=== PATIENT | female | born 1950 | race Caucasian/White ===

== ENCOUNTER → 2017-09-07 09:44 | Outpatient (CLI) | payer MEDICARE, OTHER, SELFPAY ==
--- NOTE | 2017-09-07 09:47 | XR_ITS ---
XR DEXA axial skeleton HISTORY: ITS.REASON: OSTEOPENIA ORDERING PHYSICIAN: Sanchez Clark PATIENT AGE: 67 years COMPARISON: 01/02/2016 FINDINGS: The BMD measured at the AP Spine L1-L4 femoral neck is 0.920 g/cm squared with a T score of -2.2 . This is considered Osteopenic according to the World Health Organization criteria. Fracture risk is Moderate. Treatment is advised. The mean hip density has a T score of -1.2. The bone density lumbar spine has decreased by 4% in the hip density has decreased by 2% compared to the previous exam IMPRESSION: Osteopenia with moderate fracture risk. Treatment suggested. Recommend follow-up exam August 2019
== END ==
PROVIDERS: Family Provider Nurse Practitioner Family; PCP Nurse Practitioner Family; Visit Provider Orthopaedic Surgery
DX: M85.89 Other specified disorders of bone density and structure, multiple sites (principal)
CPT/HCPCS: 77080

== ENCOUNTER → 2018-01-14 11:35 | Outpatient (CLI) | payer MEDICARE, OTHER, SELFPAY ==
--- NOTE | 2018-01-14 11:41 | CT_ITS ---
CT heart w calcium score INDICATION: Chest pain and palpitations ITS.REASON: . ORDERING PHYSICIAN: Oneal Robles MD PATIENT AGE: 67 years COMPARISON: None TECHNIQUE: Axial images are obtained without contrast. Sagittal and coronal reformatted images are reviewed as well. All CT scans at the facility use one or more dose reduction, viz: automated exposure control, ma/kV adjustment per patient size (including targeted exams where dose is matched to indication, i.e. head), or iterative reconstruction technique. FINDINGS: Coronary artery calcium score is 1 indicating minimal plaque burden with low cardiovascular disease risk. Incidental note is made of calcified nodes within the mediastinum and dada as well as moderate-sized hiatal hernia. There has been prior kyphoplasty at T12. IMPRESSION: Coronary artery calcium score 1 with low cardiovascular disease risk
== END ==
PROVIDERS: PCP Nurse Practitioner Family; Visit Provider Internal Medicine Cardiovascular Disease
DX: G47.33 Obstructive sleep apnea (adult) (pediatric) (principal); M79.603 Pain in arm, unspecified; R00.2 Palpitations; R07.9 Chest pain, unspecified
CPT/HCPCS: 75571; 93270

== ENCOUNTER → 2018-10-20 10:29 | Outpatient (CLI) | payer MEDICARE, OTHER, SELFPAY ==
--- NOTE | 2018-10-20 10:38 | CT_ITS ---
PROCEDURE: CT KNEE LT WO CON CLINICAL HISTORY: LT KNEE PAIN,INSTABILITY LT KNEE JOINT Knee pain and swelling following injury COMPARISON: No exams were available for comparison TECHNIQUE: Axial images obtained with sagittal and coronal reformats. All CT scans at the facility use one or more dose reduction, viz: automated exposure control, ma/kV adjustment per patient size (including targeted exams where dose is matched to indication, i.e. head), or iterative reconstruction technique. FINDINGS: No obvious fracture or dislocation is evident. No lipohemarthrosis apparent. No tibial plateau fracture demonstrated. Small knee joint effusion is present. The ACL and PCL follow a normal course. Cannot adequately evaluate for tear is of the structures with CT. IMPRESSION: 1. No acute fracture 2. Small knee joint effusion Dictated by: Sheldon Pugh MD 10/20/2018 15:45 Signed by: <Electronically signed by Sheldon Pugh MD in [place]> 10/20/2018 15:49
== END ==
PROVIDERS: PCP Nurse Practitioner Family; Visit Provider Nurse Practitioner Family
DX: M25.562 Pain in left knee (principal); M25.362 Other instability, left knee
CPT/HCPCS: 73700

== ENCOUNTER → 2018-12-24 13:01 | Outpatient (CLI) | payer MEDICARE, OTHER, SELFPAY ==
--- NOTE | 2018-12-24 13:07 | XR_ITS ---
PROCEDURE: XR KNEE LT 4V CLINICAL INDICATION: left knee pain COMPARISON: No exams were available for comparison FINDINGS: No fracture or dislocation. No lytic or blastic change. There is normal mineralization. The joint spaces are well-preserved. No significant degenerative/arthritic changes. No erosive changes evident. Other findings:None. IMPRESSION: No acute findings. Dictated by: Sheldon Pugh MD 12/24/2018 13:23 Electronically signed by Sheldon Pugh MD in [place] 12/24/2018 13:23
== END ==
PROVIDERS: PCP Family Medicine; Visit Provider Orthopaedic Surgery
DX: M25.562 Pain in left knee (principal)
CPT/HCPCS: 73564

== ENCOUNTER → 2018-12-31 07:39 | Outpatient (CLI) | payer MEDICARE, OTHER, SELFPAY ==
--- NOTE | 2018-12-31 07:41 | MR_ITS ---
PROCEDURE: MR KNEE LT WO CON CLINICAL INDICATION: knee pain Twisting injury with pain COMPARISON: CT KNEE LT WO CON from 10/20/2018 XR KNEE LT 4V from 12/24/2018 TECHNIQUE: Routine multiplanar multi echo sequences are performed without gadolinium enhancement. FINDINGS: The posterior cruciate ligament is unremarkable. There is some thinning of the fibers of the anterior cruciate ligament. This could be due to ACL sprain or partial tear. A full-thickness tear is not present as there are fibers intact. The collateral ligaments are unremarkable as is the patellar tendon and quadriceps tendon. There appears to be a small radial tear within the posterior horn of the medial meniscus. There is also a horizontal tear involving the body of the medial meniscus. There is increased T2 signal within the anterior horn of the medial meniscus and within the anterior and posterior horn of the medial meniscus but does not meet the MRI criteria for meniscal tear. The there is some mild thinning of the patellar cartilage. There is a small knee joint effusion mainly in the suprapatellar region with a mild amount edema within the soft tissues about the knee. No obvious fracture. There are mild tricompartmental osteoarthritic changes with slight increased T2 signal along the medial tibial plateau. IMPRESSION: 1. Horizontal tear involving the body of the medial meniscus as well as a radial tear involving the posterior horn of the medial meniscus. 2. Mild osteoarthritis with knee joint effusion and small amount of edema along the medial tibial plateau. 3. Sprain versus partial tear of the ACL Dictated by: Sheldon Pugh MD 01/02/2019 11:50 Electronically signed by Sheldon Pugh MD in [place] 01/03/2019 11:26
== END ==
PROVIDERS: PCP Nurse Practitioner Family; Visit Provider Orthopaedic Surgery
DX: M25.562 Pain in left knee (principal)
CPT/HCPCS: 73721

== ENCOUNTER → 2019-02-17 13:56 | Outpatient (CLI) | payer MEDICARE, OTHER, SELFPAY ==
--- NOTE | 2019-02-17 | ECG_ITS ---
APPROVED REPORT Exam: Resting ECG HR:67 bpm ECG Measurements Heart Rate 67 AXES FL 184 P 52 QRSd 102 QRS 87 QT 422 T 36 QTc 445 <Conclusion> Normal sinus rhythm Normal ECG Electronically signed by : Ko Acuña, 02/18/2019 07:22:52
[2019-02-17 14:46] LABS: Basophils % 0.4 % (0.1-2.0); Eosinophils # 0.2 K/mm3 (0.0-0.4); Eosinophils % 2.3 % (0.1-12.0); Hematocrit 38.9 % (37.0-47.0); Lymphocytes # 2.6 K/mm3 (0.7-4.5); Lymphocytes % 34.6 % (10-50); Mean Corpuscular HGB Conc 30.9 g/dL (31.8-35.4); Mean Corpuscular Hemoglobin 29.2 pg (27.0-31.2); Mean Corpuscular Volume 94.7 fl (81-99); Mean Platelet Volume 7.1 fl (7.4-10.4); Monocytes # 0.3 K/mm3 (0.1-1.0); Monocytes % 4.1 % (1.7-9.3); Neutrophils # 4.4 K/mm3 (1.8-7.8); Neutrophils % 58.5 % (37.0-80.0); Platelet Count 367 K/mm3 (142-424); Red Blood Count 4.11 M/mm3 (4.20-5.40); Red Cell Distribution Width 13.6 % (11.5-17.5); White Blood Count 7.6 K/mm3 (4.8-10.8)
[2019-02-17 16:09] LABS: Alanine Aminotransferase 28 U/L (12-78); Albumin Level 3.6 gm/dL (3.4-5.0); Albumin/Globulin Ratio 1.1 (1.1-1.8); Alkaline Phosphatase 112 U/L (46-116); Anion Gap 14.8 mEq/L (5-15); Aspartate Amino Transferase 16 U/L (15-37); Bilirubin,Total 0.7 mg/dL (0.2-1.0); Blood Urea Nitrogen 14 mg/dL (7-18); Calcium 8.8 mg/dL (8.5-10.1); Carbon Dioxide 27 mmol/L (21.0-32.0); Chloride 104 mmol/L (98-107); Creatinine,Serum 0.83 mg/dL (0.55-1.02); Estimated Glomerular Filt Rate 69 ml/min (>60); GFR (African American) 83 ML/MIN (>60); Globulin 3.4 gm/dl (1.3-3.2); Glucose 117 mg/dL (74-106); Potassium 3.8 mmoL/L (3.5-5.1); Sodium 142 mmol/L (136-145)
== END ==
PROVIDERS: PCP Nurse Practitioner Family; Visit Provider Orthopaedic Surgery
DX: R79.9 Abnormal finding of blood chemistry, unspecified (principal); R07.9 Chest pain, unspecified
CPT/HCPCS: 36415; 80053; 85025; 93005

== ENCOUNTER 2019-02-28 10:00 | Outpatient (RCR) | payer MEDICARE, OTHER, SELFPAY ==
--- NOTE | 2018-11-02 10:34 | HMH.PTOPEV ---
PT Outpatient Evaluation Rehab PT Outpatient Evaluation Start: 11/02/18 08:39 Freq: Status: Active Protocol: Document 11/02/18 10:24 DIANE (Rec: 11/02/18 10:34 [email or web address] [id number]) Electronically Signed By Raman Orozco, PT 11/02/18 10:24 Outpatient Therapy Subjective History Subjective History Pt is 68 yowf who presents with c/o pain in the left knee x ~ 7 wks. She reports pain is aching and the knee feels stiff with all activity,. She states, I was doing some twisting work in the barn and not moving my feet and that's when it started and it just hasn't gotten any better. CT scan of left knee was unremarkable save for a small amont of effusion. She has severe tenderness to palpation throunghtout the left knee making it difficult to pinpoint and exact location, but she c/o pain worse on the medial side of the knee. She reports PMH of HTN, HL, T12 compression fx with kyphoplasty, left wrist ORIF. Chief Complaint Pain,Stiff Symptom Type Ache Symptoms Relieved By Rest/Positioning,Heat Symptoms Aggravated By Standing,Physical Activity, Walking Prior Functional Limitations None Current Functional Limitations Sleeping,Standing,Walking Symptom Description Constant but Variable Level of pain today (0-10) 2 Pain scale - at its worst (0-10) 8 Hip/Knee Eval Gait Observation General Gait Pattern Observation No Deviations/Normal Palpation Tenderness left Knee Palpation Finding Tenderness Knee Palpation Overall Comment Tender throughout the left knee: med jt, lat jt, popliteal, inf patellar Hip Palpation Findings Tenderness MMT Hip Flexion Strength Grade 4 Good Hip Abduction Strength Grade 4 Good Hip Adduction Strength Grade 4 Good Hip Extension Strength Grade 4 Good Gluteus Elmer Strength Grade 4 Good Hip External Rotation Strength Grade 4 Good Hip Internal Rotation Strength Grade 4 Good Knee Extension Strength Grade 3 Fair Knee Flexion Strength Grade 3 Fair ROM Knee Extension Active Range of Motion ( 0 degrees) Knee Flexion
--- NOTE | 2018-12-08 10:40 | HMH.RHREAS ---
Rehab Reassessment Rehab OP Re-assessment Start: 12/08/18 10:24 Freq: Status: Active Protocol: Document 12/08/18 10:37 DIANE (Rec: 12/08/18 10:40 DIANE [id number]) Electronically Signed By Raman Orozco, PT 12/08/18 10:37 Rehab Re-assessment Subjective Subjective Pt reports, I fell at home in my kitchen after I slipped and landed right on my knee on the left side. Now it has hurt a lot since then and feels really stiff. Objective Objective Notes AROM left knee 0-122 deg. Pain 09/08 with AROM. Assessment Progress Assessment Slower Than Expected Assessment Notes Pt was progressing very well with pain decreased considerably until her new fall. Her AROM remains WNL, but her pain is considerably increased now. Patient goals met ST,2,3,4,5,6,7 Goals Not Met LT,2,3,4,5,6 Revised Goals none Plan Plan Continue per initial POC Frequency of Therapy 2 x/wk Duration of therapy 8 wks Time and Billing Re-Eval Time 15 Re-Eval Billing Units 1 PHYSICIAN CERTIFICATION: I certify the specified therapy services for Jayda Iraheta are required, authorized, and reviewed every 30 days.
--- NOTE | 2019-01-07 10:07 | HMH.RHREAS ---
Rehab Reassessment Rehab OP Re-assessment Start: 12/08/18 10:24 Freq: Status: Active Protocol: Document 01/07/19 10:04 DIANE (Rec: 01/07/19 10:07 DIANE [id number]) Electronically Signed By Raman Orozco, PT 01/07/19 10:04 Rehab Re-assessment Subjective Subjective Pt reports pain is about the same, worse at night. She had MRI performed 6 days ago. Objective Objective Notes AROM left knee 0-120 deg but remains painful at end range. MMT right knee flex/ext 4+/5. Assessment Progress Assessment Slower Than Expected Assessment Notes MRI report shows likely medial meniscus tear in the posterior horn. Patient goals met ST,2,3,4,5,6,7 Goals Not Met LT,2,3,4,5,6 Revised Goals none Plan Plan Continue per initial POC Frequency of Therapy 2 x/wk Duration of therapy 8 wks Time and Billing Re-Eval Time 15 Re-Eval Billing Units 1 PHYSICIAN CERTIFICATION: I certify the specified therapy services for Jayda Iraheta are required, authorized, and reviewed every 30 days.
--- NOTE | 2019-02-07 10:57 | HMH.RHREAS ---
Rehab Reassessment Rehab OP Re-assessment Start: 12/08/18 10:24 Freq: Status: Active Protocol: Document 02/07/19 10:55 DIANE (Rec: 02/07/19 10:57 DIANE [id number]) Electronically Signed By Raman Orozco, PT 02/07/19 10:55 Rehab Re-assessment Subjective Subjective Pt reports only mild pain with certain activity, but much worse at night most of the time. Objective Objective Notes AROM: Left knee WNL throughout MMT Left knee flex/ext 4+/5. Assessment Progress Assessment Progressing as Expected Assessment Notes Continues to strengthen well in anticipation of surgery after the 1st fo the year. Pain remains worse at night, likely due to OA. Patient goals met ST,2,3,4,5,6,7 Goals Not Met LT,2,3,4,5,6 Revised Goals none Plan Plan Continue per initial POC Frequency of Therapy 2 x/wk Duration of therapy 8 wks Time and Billing Re-Eval Time 15 Re-Eval Billing Units 1 PHYSICIAN CERTIFICATION: I certify the specified therapy services for Jayda Iraheta are required, authorized, and reviewed every 30 days.
== END 2019-02-28 10:05 | disposition home or self-care (01) ==
LOC: PT 10:00
PROVIDERS: PCP Nurse Practitioner Family; Visit Provider Family Medicine
DX: M25.562 Pain in left knee (principal)
CPT/HCPCS: 97010; 97014; 97016; 97035; 97110; 97140; 97163; 97164; G0283

== ENCOUNTER 2019-04-07 09:00 | Outpatient (RCR) | payer MEDICARE, OTHER, SELFPAY | END 2019-04-07 09:05 | disposition home or self-care (01) | LOC: PT 09:00 | PROVIDERS: PCP Nurse Practitioner Family; Visit Provider Orthopaedic Surgery | DX: M25.562 Pain in left knee (principal); Z96.652 Presence of left artificial knee joint | CPT/HCPCS: 97010; 97014; 97033; 97110; 97163; G0283 ==

== ENCOUNTER → 2019-08-09 13:02 | Outpatient (CLI) | payer MEDICARE, OTHER, SELFPAY ==
--- NOTE | 2019-08-09 13:38 | US_ITS ---
PROCEDURE: US THYROID CLINICAL INDICATION: THYROID NODULE Patient feels soft tissue mass midline of upper neck COMPARISON: No exams were available for comparison FINDINGS: Right lobe: The right lobe measures 1.4 x 3.9 x 1.4 cm. There is a tiny hypoechoic lesion upper pole measuring 0.2 x 0.2 by 0.2 cm likely a tiny cyst. Left lobe: The left lobe measures 1.3 x 3.8 x 1.4 cm. There is a small solid isoechoic nodule mid pole measuring 0.6 by 0.9 x 0.8 cm this is Ti rads 3. Isthmus: Normal Additional findings: There is a somewhat oval hypoechoic lesion at the palpable area above the thyroid measuring 3.9 x 1.9 by 3.5 cm with hyperechoic internal septations in this likely is a lipoma but the interface with the surrounding anatomy is poorly defined and consider follow-up CT scan of the neck for additional evaluation. IMPRESSION: Isoechoic solid nodule left lobe Ti rads 3 and consider follow-up study in 1 year for continuing evaluation. 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 Lawrence Crawford MD 08/09/2019 15:[address] Lawrence Crawford MD in [place] 08/09/2019 15:14
[2019-08-09 14:57] LABS: Free T4 (Free Thyroxine) 0.98 ng/dl (0.78-2.19)
== END ==
PROVIDERS: PCP Nurse Practitioner Family; Visit Provider Otolaryngology
DX: E04.1 Nontoxic single thyroid nodule (principal)
CPT/HCPCS: 36415; 76536; 84439; 84443

== ENCOUNTER → 2019-08-23 08:19 | Outpatient (CLI) | payer MEDICARE, OTHER, SELFPAY ==
--- NOTE | 2019-08-23 08:32 | XR_ITS ---
PROCEDURE: XR DEXA AXIAL SKELETON CLINICAL HISTORY: POST MENOPAUSAL COMPARISON: No exams were available for comparison FINDINGS: The right femoral neck density is 0.641 g per cm sq which is a T-score of -1.9. The total left proximal femur density is 0.729 g per cm sq with a T-score of -1.7. L-spine density is 0.837 g per cm sq with a T-score -1.9 IMPRESSION: Osteopenia with moderate fracture risk. Treatment advised. Suggest follow-up exam in 2 years Dictated by: Sheldon Pugh MD 08/29/2019 20:58 Electronically signed by Sheldon Pugh MD in [place] 08/29/2019 21:17
== END ==
PROVIDERS: PCP Nurse Practitioner Family; Visit Provider Nurse Practitioner Family
DX: M85.80 Other specified disorders of bone density and structure, unspecified site (principal); Z78.0 Asymptomatic menopausal state
CPT/HCPCS: 77080

== ENCOUNTER → 2019-09-29 10:01 | Outpatient (CLI) | payer MEDICARE, OTHER, SELFPAY ==
--- NOTE | 2019-09-29 10:07 | MM_ITS ---
PROCEDURE: MM DIG SCREENING MAMM BI W/CAD DIGITAL BREAST TOMOSYNTHESIS INCLUDED Patient Age:69Y CLINICAL INDICATION: SCREENING no hormones. No new complaints. Family history: Maternal aunt breast cancer postmenopausal; maternal cousin breast cancer 30-46 premenopausal. COMPARISON: BC MAMM DIAG BILAT DIG PNL from 10/11/2007 PB MAMM SCREEN BILAT DIG PNL from 11/12/2010 PB MAMM SCREEN BILAT DIG PNL from 06/30/2013 DMSB DIG MAMM-SCREEN DEO from 11/27/2015 TECHNIQUE: Standard CC and MLO images were obtained. R2 CAD reviewed. Bilateral digital breast tomosynthesis included. FINDINGS: Minimal residual fibroglandular elements with no new dominant or suspicious mass. No suspicious calcifications. Multiple previous studies helpful in supporting stability Left breast. No new areas of significant concern Small stable intramammary node laterally. The other small areas minor nodularity unchanged since 2007 and thus can be followed Right breast. Stable with no new areas of significant concern . Bilateral follow-up 1 year recommended IMPRESSION: Stable bilateral mammogram no new areas of significant concern Bilateral follow-up 1 year recommended BI-RAD Category: 2 Benign Finding(s) FOLLOW-UP: 1YR 1 Year Follow-up (A letter has been sent to the patient regarding results of the study.) Dictated by: Emanuel Mitchell MD 10/01/2019 12:11 Electronically signed by Emanuel Mitchell MD in [place] 10/01/2019 12:11
== END ==
PROVIDERS: PCP Nurse Practitioner Family; Visit Provider Nurse Practitioner Family
DX: Z12.31 Encounter for screening mammogram for malignant neoplasm of breast (principal)
CPT/HCPCS: 77063; 77067

== ENCOUNTER → 2019-10-04 12:22 | Outpatient (CLI) | payer MEDICARE, OTHER, SELFPAY ==
[2019-10-04 13:24] LABS: Alkaline Phosphatase 114 U/L (38-126); Calcium 9.7 mg/dl (8.4-10.2); Phosphorous 4.2 mg/dl (2.5-4.5)
[2019-10-04 13:37] LABS: Intact Parathyroid Hormone 55.2 pg/mL (7.5-53.5)
[2019-10-04 13:41] LABS: 25-OH Vitamin D, Total 36.8 ng/mL (30-100)
== END ==
PROVIDERS: Visit Provider Orthopaedic Surgery
DX: M81.0 Age-related osteoporosis without current pathological fracture (principal); E55.9 Vitamin D deficiency, unspecified; E58 Dietary calcium deficiency
CPT/HCPCS: 36415; 82306; 82310; 83970; 84075; 84100

== ENCOUNTER 2020-01-21 09:09 | Emergency (ER) | payer MEDICARE, OTHER, SELFPAY ==
[2020-01-21 09:15] VITALS: BP 144/76; PULSE 73; RESP 20; TEMP 36.9; O2SAT 98; BMI 34.3
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
[2020-01-21 09:41] VITALS: BP 144/76; PULSE 73; RESP 20; TEMP 36.9; O2SAT 98
[2020-01-22 09:01] LABS: Covid-19 Nasal PCR Sendout UK Not Detected
== END 2020-01-21 09:43 | disposition home or self-care (01) ==
PROVIDERS: Emergency Provider Nurse Practitioner Family; PCP Family Medicine
DX: Z20.828 Contact with and (suspected) exposure to other viral communicable diseases (principal); I10 Essential (primary) hypertension; K21.9 Gastro-esophageal reflux disease without esophagitis; E03.9 Hypothyroidism, unspecified; E78.5 Hyperlipidemia, unspecified; Z79.899 Other long term (current) drug therapy
CPT/HCPCS: G0463; 99201; U0003

== ENCOUNTER 2020-03-15 12:01 | Emergency (ER) | payer MEDICARE, OTHER, SELFPAY ==
[2020-03-15 12:20] VITALS: BP 132/73; PULSE 82; RESP 19; TEMP 37; O2SAT 98; BMI 33.3
--- NOTE | 2020-03-15 12:29 | HMH.EDUTC ---
[facility] [place] Clinical Impression: Encounter for laboratory testing for COVID-19 virus Disposition: Home, Self-Care Condition on Discharge: Good Instructions: DI for COVID-19 (Suspected or Confirmed ), Coronavirus Disease 2019, Preventing the Spread of Coronavirus Discharge Instructions Additional Instructions: *Monitor Temp, Over the counter Motrin or Tylenol as directed/as needed Tylenol every 4 hours and Motrin every 6 hours (as long as your family doctor has told you that you can take it) for fever or pain. and straight to ER if unable to lower temp less than 101.0 after medication given Follow up IMMEDIATELY for new or worsening symptoms or no Noticeable improvement over the next 48-72 hours. 911 for difficulty breathing or swallowing You were tested for today for COVID19 your test result should be back in the next 24-48 hours, you may call to the [facility] to see if your test results are back in the next 48 hours [phone] [facility] hours are 9am-9pm You was given a handout with instructions for Self Quarantine and Self isolation for while you wait on test results and what to do if they are positive If you are positive the Health Dept will be contacting you also Referrals: Jo-Ann Borden APRN [Primary Care Provider] - As needed Time of Disposition: 12:31 Medical Decision Making - [place] Inquiry Pt receiving controlled substance: No [place] was queried for this patient: No Vital Signs: 03/15/20 12:20 Temperature 98.6 F Temperature Source Oral Pulse Rate [Right Brachial] 82 Respiratory Rate 19 Blood Pressure [Right Arm] 132/73 Blood Pressure Mean [Right Arm] 92 Blood Pressure Source [Right Arm] Automatic Cuff Blood Pressure Position [Right Arm] Sitting 02 Sat by Pulse Oximetry 98 Oxygen Delivery Method Room Air Orders (Tests/Meds): ORDERS Category Date Time Status Covid-19 Nasal PCR Sendout [facility] 03/15/20 12:10 Ordered [facility] [place] HPI - General Stated complaint: covid test Time Seen by Provider: 03/15/20 12:29 Mode of Arrival: Ambulatory Source of Information: Patient Limitations: No Limitations Description of Symptoms (Recalled from Triage Doc. by RN): REQUESTING COVID TEST. C/O BODY ACHES AND HEADACHE HEENT Symptoms (Recalled from RN notes): Yes Resp Symptoms (Recalled from RN notes): No Skin Symptoms (Recalled from RN notes): No MS Symptoms (Recalled from RN notes): No Functional Status (Recalled from RN notes): WNL - History of Present Illness Provider Complaint: Patient states that she is currently being treated for UTI State that she has recently started having body aches and chills States that she is wanted to get tested for COVID - Related Data Home Medications Medication Instructions Recorded Confirmed omeprazole 40 mg capsule,delayed 40 mg PO DAILY cap 03/25/19 03/15/20 release Amlodipine Besylate [Amlodipine 5 mg PO DAILY 03/15/20 03/15/20 5mg tab] Previous Rx's Medication Instructions Recorded atorvastatin 40 mg tablet 40 mg PO DAILY #90 tab 03/25/19 Allergies Allergy/AdvReac Type Severity Reaction Status Date / Time ciprofloxacin [From Cipro] Allergy Mild fever and Verified 03/25/19 10:03 rash - Worker's Comp Is this a Worker's Comp case?: No H History - Hepatitis A Screen Drug use history?: No High risk sexual behaviors?: No History of sexually transmitted infection?: No Currently employed?: No Childcare worker?: No Do you have indoor plumbing?: Yes Do you have electricity?: Yes Attestation statement:: This patient has been screened for Hepatitis A risk factors. I have reviewed the patient's past medical history: Yes 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: Reports:: Gastroesophageal Reflux Disease(GERD), Hyperlipidemia, Hypertension Denies:: Anxiety, Depression, Diabetes Mellitus Type 1, MRSA, Seizures Other 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: Reports: Arthritis. Denies: Hypothyroidism Laterality Cases: Bilateral: Tonsillectomy Other Surgeries: Yes: , Othe
[2020-03-15 12:33] VITALS: BP 132/73; PULSE 82; RESP 19; TEMP 37; O2SAT 98
[2020-03-16 07:46] LABS: Covid-19 Nasal PCR Sendout P&C NEGATIVE
== END 2020-03-15 12:35 | disposition home or self-care (01) ==
PROVIDERS: Emergency Provider Nurse Practitioner; PCP Nurse Practitioner Family
DX: Z20.822 Contact with and (suspected) exposure to COVID-19 (principal); R51.9 Headache, unspecified; K21.9 Gastro-esophageal reflux disease without esophagitis; E78.5 Hyperlipidemia, unspecified; I10 Essential (primary) hypertension; E03.9 Hypothyroidism, unspecified; Z79.899 Other long term (current) drug therapy
CPT/HCPCS: G0463; 99202; U0004

== ENCOUNTER → 2020-03-23 10:44 | Outpatient (CLI) | payer MEDICARE, OTHER, SELFPAY | PROVIDERS: PCP Nurse Practitioner Family; Visit Provider Internal Medicine Cardiovascular Disease | DX: R00.2 Palpitations (principal) | CPT/HCPCS: 93225; 93226 ==

== ENCOUNTER 2021-01-23 18:03 | Emergency (ER) | payer MEDICARE, OTHER, SELFPAY ==
[2021-01-23 18:04] VITALS: BP 152/88; PULSE 87; RESP 18; TEMP 36.6; O2SAT 99; BMI 30.9
[2021-01-23 18:31] VITALS: BMI 30.9
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
--- NOTE | 2021-01-23 18:38 | PC.NURSE ---
pt to xray
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
[2021-01-23 20:30] VITALS: BP 152/88; PULSE 88; RESP 18; TEMP 36.6; O2SAT 97
== END 2021-01-23 20:00 | disposition home or self-care (01) ==
PROVIDERS: Emergency Provider Emergency Medicine; PCP Nurse Practitioner Family
DX: T59.811A Toxic effect of smoke, accidental (unintentional), initial encounter (principal); K21.9 Gastro-esophageal reflux disease without esophagitis; E78.5 Hyperlipidemia, unspecified; I10 Essential (primary) hypertension; Z79.899 Other long term (current) drug therapy
CPT/HCPCS: 71046; 99281

== ENCOUNTER → 2021-05-14 09:21 | Outpatient (CLI) | payer MEDICARE, OTHER, SELFPAY | PROVIDERS: PCP Nurse Practitioner Family; Visit Provider Physician Assistant | DX: R60.9 Edema, unspecified (principal); R00.2 Palpitations | CPT/HCPCS: 93270 ==

== ENCOUNTER → 2021-06-04 08:17 | Outpatient (CLI) | payer MEDICARE, OTHER, SELFPAY ==
[2021-06-04 09:18] LABS: Alanine Aminotransferase 50 U/L (12-78); Alkaline Phosphatase 106 U/L (38-126); Aspartate Amino Transferase 31 U/L (14-36); Bilirubin,Direct 0.1 mg/dl (0.0-0.4); Bilirubin,Indirect 0.6 mg/dL (0.0-0.9); Bilirubin,Total 0.7 mg/dl (0.2-1.3); Bilirubin,Unconjugated 0.6 mg/dL (0.0-1.1); Chol/HDL Ratio 3.4 (1-3.5); Cholesterol 174 mg/dl (140-200); HDL Cholesterol 51 mg/dl (40-60); Total Protein,Serum 6.6 g/dl (6.3-8.2); Triglycerides 102 mg/dl (30-150); VLDL Cholesterol 20 mg/dL (0-40)
[2021-06-04 09:29] LABS: Direct LDL Cholesterol 89.29 mg/dL (100-129)
== END ==
PROVIDERS: Visit Provider Physician Assistant
DX: I11.9 Hypertensive heart disease without heart failure (principal); E11.9 Type 2 diabetes mellitus without complications
CPT/HCPCS: 36415; 80061; 80076

== ENCOUNTER → 2021-10-15 14:46 | Outpatient (POV) | payer MEDICARE, OTHER, SELFPAY | PROVIDERS: Visit Provider Dermatology | DX: Z00.00 Encounter for general adult medical examination without abnormal findings (principal) ==

== ENCOUNTER 2022-04-10 13:54 | Outpatient (RCR) | payer MEDICARE, SELFPAY | END 2022-04-10 13:55 | disposition home or self-care (01) | LOC: PT 13:54 | PROVIDERS: PCP Nurse Practitioner Family; Visit Provider Nurse Practitioner Family | DX: H81.12 Benign paroxysmal vertigo, left ear (principal) | CPT/HCPCS: 97110; 97140; 97163 ==

== ENCOUNTER 2022-08-20 08:32 | Outpatient (CLI) | payer MEDICARE, SELFPAY ==
[2022-08-20] VITALS (18 sets, daily range): BP systolic 124–154; BP diastolic 49–72; PULSE 59–71; RESP 20; TEMP 36.6–37.2; O2SAT 97–98; BMI 32.5
[2022-08-20 09:22] LABS: Hematocrit 23.6 % (37.0-47.0); Hemoglobin 7.1 g/dL (12.2-16.2)
--- NOTE | 2022-08-20 10:34 | PC.NURSE ---
0930 08/20/22 pt here today for blood transfusion as ordered per pcp. pt reports that md checked blood levels in office and hgb results were noted at 6.6 and iron level was low. Rechecked pt h/h level today and pt is noted with a hgb-7.1. Pt reports feeling symptomatic with the anemia and reported to the pcp for c/o body aches/leg cramps, fatigue, and weakness. Pt ordered to receive 2 units prbc's today.
== END 2022-08-20 16:24 | disposition home or self-care (01) ==
LOC: INF 08:34
PROVIDERS: PCP Nurse Practitioner Family; Visit Provider Nurse Practitioner Family
DX: D50.9 Iron deficiency anemia, unspecified (principal)
CPT/HCPCS: 36430; 85014; 85018; 86850; P9016

== ENCOUNTER → 2022-08-21 12:52 | Outpatient (CLI) | payer MEDICARE, SELFPAY ==
--- NOTE | 2022-08-21 | US_ITS ---
FINAL REPORT CLINICAL HISTORY: HTN, hyperlipidemia, bilateral claudication, bilateral rest pain. FINDINGS: COMPLETE ANKLE/BRACHIAL INDICES BILATERAL Complete ankle brachial indices were obtained. The right MICHAEL is 1.2. The left MICHAEL is 1.2. IMPRESSION: ABIs are within normal limits bilaterally. Reviewed, Interpreted and Dictated by Ganesh Welsh MD Transcribed by Екатерина Cisneros Authenticated and [facility]
--- NOTE | 2022-08-21 13:29 | XR_ITS ---
FINAL REPORT CLINICAL HISTORY: KNEE PAIN COMPARISON: 12/24/2018 FINDINGS: LEFT KNEE SERIES Three views of the left knee were obtained. There is no acute fracture or dislocation. There is mild narrowing of the medial compartment joint space. There are small osteophytes of the medial joint margin which have increased since previous. There is no soft tissue abnormality. IMPRESSION: Mild osteoarthritis. Reviewed, Interpreted and Dictated by Ganesh Welsh MD Transcribed by Anita De Santiago Authenticated and [facility]
--- NOTE | 2022-08-21 13:30 | XR_ITS ---
FINAL REPORT CLINICAL HISTORY: KNEE PAIN FINDINGS: RIGHT KNEE SERIES Three views of the right knee were obtained. There is no acute fracture or dislocation. The joint spaces are preserved. There is no soft tissue abnormality. IMPRESSION: No acute abnormality. Reviewed, Interpreted and Dictated by Ganesh Welsh MD Transcribed by Anita De Santiago Authenticated and [facility]
== END ==
PROVIDERS: PCP Nurse Practitioner Family; Visit Provider Nurse Practitioner Family
DX: I70.213 Atherosclerosis of native arteries of extremities with intermittent claudication, bilateral legs (principal)
CPT/HCPCS: 73562; 93923

== ENCOUNTER → 2022-08-21 14:18 | Outpatient (POV) | payer MEDICARE, SELFPAY ==
[2022-08-21 15:09] VITALS: BP 133/47; PULSE 70; RESP 18; BMI 32.5
--- NOTE | 2022-08-21 15:17 | EXP.PAIN.OV ---
HPI Data of Consult Patient: new to practice Consult date: 08/21/22 Requesting Physician: Becky Clark APRN Primary Care Provider: Jo-Ann Borden APRN Consult Narrative Reason for consult: Bilateral knee pain History of present illness: Ms. Iraheta is a 72 year old female who presents today as a new patient. She rates her pain a 7 out of 10. Patient states her pain is all in her bilateral knees and describes this as a aching sensation with occasional sharp shooting pains with certain activity. Patient does state this has been going on for over 2 years and progressively worsened over time. Patient does state that she has difficulty with ambulation due to her pain. Patient does state that she frequently experiences swelling in the joints. She does state that her right side is worse than the left. Patient has tried [id number] Tylenol and ibuprofen along with heat and ice and topicals with minimal relief. Patient has previously had a left knee arthroscopy procedure due to a meniscus tear back in January 2021. Patient states initially this did improve some of her symptoms however she feels like now she is experiencing significant pain similar to that in her right knee. Patient is concerned that she may have torn something. Patient denies any specific injury or trauma that caused her initial symptoms. Patient is not on any scheduled medications. She did just have bilateral knee x-rays earlier today. She is scheduled to go to [facility] to see Steven Genao on August 27. Her Vernon is appropriate. CC: Becky Clark APRN [facility] Disclaimer: The information contained in this section may have been updated after the patient was seen, as this information can be updated by other users. 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 (Updated 08/21/22 @ 15:21 by Becky Clark APRN) Arthritis Chest pain Gastroesophageal reflux disease HLD (hyperlipidemia) HTN (hypertension) Hypothyroidism Left wrist fracture Neck pain Normal colonoscopy Palpitations Surgical History Hx of tonsillectomy Family History Other Anemia Asthma Cancer Diabetes Heart attack Hyperlipidemia Hypertension Stroke Social History (Updated 08/21/22 @ 15:10 by Gemini Dickerson RN) Smoking Status: Never smoker alcohol intake: never substance use type: denies use current occupational status: other Travel in the last 8 weeks: None Review of Systems Review of Systems Review of systems:: pertinent systems reviewed and negative unless documented below Review of systems (narrative): Review of Systems: General: No recent weight changes, no fever, no sleep disturbances Respiratory: No cough, no shortness of air, no recurring pulmonary infections Cardiovascular/peripheral vascular: No chest pain, no palpitations, no edema, no shortness of breath Gastrointestinal: No new onset incontinence, normal bowel movements reported Genitourinary: No new onset incontinence Musculoskeletal: Bilateral knee pain Psychiatric: [Normal mood/affect] Neurological: [Denies weakness in extremities], [denies balance issues] Meds Home Medications and Allergies Home Medications Medication Instructions Recorded Confirmed Type omeprazole 40 mg capsule,delayed 40 mg PO DAILY GERD 03/25/19 08/21/22 History release atorvastatin 40 mg tablet 40 mg PO DAILY Cholesterol #90 tabs 05/14/21 08/21/22 Rx amlodipine 5 mg tablet 5 mg PO DAILY blood pressure 08/20/22 08/21/22 History New Prescriptions to Start Prescriptions: Allergies Allergy/AdvReac Type Severity Reaction Status Date / Time ciprofloxacin [From Cipro] Allergy Mild fever and Verified 06/11/21 09:00 rash Objective Vital signs: Pulse Resp BP 70 18 133/47 L 08/21/22 15:09 08/21/22 15:09 08/21/22 15:09 Narrative: Physical Exam: General: Alert and oriented x3, no a
== END | disposition home or self-care (01) ==
PROVIDERS: PCP Nurse Practitioner Family; Visit Provider Nurse Practitioner Family
DX: I70.223 Atherosclerosis of native arteries of extremities with rest pain, bilateral legs (principal); M25.561 Pain in right knee; M25.562 Pain in left knee
CPT/HCPCS: G0463; 73562; 93923; 99202

== ENCOUNTER → 2022-08-28 09:19 | Outpatient (CLI) | payer MEDICARE, SELFPAY ==
--- NOTE | 2022-08-28 09:24 | XR_ITS ---
FINAL REPORT CLINICAL HISTORY: post menopausal COMPARISON: 08/23/2019 FINDINGS: Using L1-4, the bone mineral density of the spine is 0.863 g/cm2, corresponding to T-score of -1.7. Using the left hip, the bone mineral density of the femoral neck is 0.612 g/cm2, corresponding to a T-score of -2.1. Using the right hip: The bone mineral density of the femoral neck is 0.653 g/cm2, corresponding to a T-score of -1.8. IMPRESSION: Low bone mineral density of the lumbar spine and hips. No significant change compared to the prior exam. NOTE: T-score: Standard deviation compared with peak bone mass of young adult mean. *Following the recommendations of the International Society of Bone densitometry, classification of hip BMD is based on the lower of two T-scores; total hip or femoral neck. Reviewed, Interpreted and Dictated by Mk Valera III, MD Transcribed by Carolann Clarke Authenticated and [facility]
--- NOTE | 2022-08-28 09:26 | MM_ITS ---
PROCEDURE INFORMATION: Exam: MG Bilateral Screening 3D Mammography Exam date and time: 08/28/2022 9:37 AM Age: 72 years old Clinical indication: Screening examination TECHNIQUE: Imaging protocol: Bilateral Screening tomosynthesis and 2D mammography including computer-aided detection (CAD) when performed. COMPARISON: 1. MG MM DIG SCREENING MAMM BI W/CAD 09/29/2019 10:20 AM 2. MG DMSB DIG MAMM-SCREEN DEO 11/27/2015 10:10 AM FINDINGS: MAMMOGRAPHY: Breast composition: There are scattered areas of fibroglandular density. Mass: None. Architectural distortion: None. Calcifications: No suspicious calcifications. Asymmetric density: None. Skin thickening: None. Axillary adenopathy: None. IMPRESSION: No mammographic evidence of malignancy. Annual screening is recommended unless otherwise clinically indicated. ASSESSMENT: BI-RADS Category 1: Negative
== END ==
PROVIDERS: PCP Nurse Practitioner Family; Visit Provider Nurse Practitioner Family
DX: Z78.0 Asymptomatic menopausal state (principal); Z12.31 Encounter for screening mammogram for malignant neoplasm of breast; Z13.820 Encounter for screening for osteoporosis
CPT/HCPCS: 77063; 77067; 77080

== ENCOUNTER → 2022-09-01 07:37 | Outpatient (CLI) | payer MEDICARE, SELFPAY ==
--- NOTE | 2022-09-01 07:44 | MR_ITS ---
FINAL REPORT CLINICAL HISTORY: BILATERAL KNEE PAIN. posterior knee pain and swelling. no injury or trauma. popping in knee FINDINGS: Multiplanar MR imaging of the right knee was performed without contrast. There is a tear of the posterior horn of the medial meniscus with a small flap component displaced medially. The lateral meniscus is intact. The anterior and posterior cruciate ligaments are intact. The medial collateral ligament and lateral ligamentous complex are intact. The patellar and quadriceps tendons are intact. There is no evidence of fracture. There is moderate medial compartment chondromalacia. A small joint effusion is seen. The musculature is intact. There is a small popliteal cyst. IMPRESSION: Tear of the posterior horn of the medial meniscus with a small flap component displaced medially. Moderate medial compartment chondromalacia. Small joint effusion. Reviewed, Interpreted and Dictated by Mk Valera III, MD Transcribed by Sanjuanita Patton Authenticated and [facility]
== END ==
PROVIDERS: PCP Nurse Practitioner Family; Visit Provider Nurse Practitioner Family
DX: M25.561 Pain in right knee (principal); M25.562 Pain in left knee
CPT/HCPCS: 73721

== ENCOUNTER → 2022-11-10 09:03 | Outpatient (CLI) | payer MEDICARE, SELFPAY ==
[2022-11-10 09:49] LABS: Basophils % 0.4 % (0.1-2.0); Eosinophils # 0.1 K/mm3 (0.0-0.4); Eosinophils % 1.3 % (0.1-12.0); Hematocrit 35.5 % (37.0-47.0); Hemoglobin 10.3 g/dL (12.2-16.2); Lymphocytes # 1.3 K/mm3 (0.7-4.5); Lymphocytes % 18.8 % (10-50); Mean Corpuscular Hemoglobin 23.9 pg (27.0-31.2); Mean Corpuscular Volume 82.6 fl (81-99); Mean Platelet Volume 7.2 fl (7.4-10.4); Monocytes # 0.4 K/mm3 (0.1-1.0); Monocytes % 4.9 % (1.7-9.3); Neutrophils # 5.3 K/mm3 (1.8-7.8); Neutrophils % 74.6 % (37.0-80.0); Platelet Count 460 K/mm3 (142-424); Red Blood Count 4.29 M/mm3 (4.20-5.40); Red Cell Distribution Width 20.7 % (11.5-17.5)
[2022-11-10 10:22] LABS: Iron 19 ug/dL (37-170)
[2022-11-10 10:32] LABS: Total Iron Binding Capacity 471 ug/dL (265-497)
[2022-11-10 10:43] LABS: Free Thyroxine Index 2.5 ug/dL (5.93-13.13); T4 (Thyroxine) 8.9 ug/dl (5.53-11.0); Triiodothryronine (T3) Uptake 28 % (23.5-40.5)
[2022-11-10 10:56] LABS: Thyroid Stimulating Hormone 1.64 uIU/mL (0.465-4.68)
[2022-11-10 10:59] LABS: Ferritin 5.45 ng/ml (11.1-264)
== END ==
PROVIDERS: PCP Nurse Practitioner Family; Visit Provider Nurse Practitioner Family
DX: D63.8 Anemia in other chronic diseases classified elsewhere (principal); D50.9 Iron deficiency anemia, unspecified; Z79.899 Other long term (current) drug therapy
CPT/HCPCS: 36415; 82728; 83540; 83550; 83735; 84436; 84443; 84479; 85025

== ENCOUNTER 2023-01-03 08:00 | Emergency (ER) | payer MEDICARE, SELFPAY ==
[2023-01-03 08:10] VITALS: BP 151/92; PULSE 74; RESP 18; TEMP 36.7; O2SAT 95; BMI 33.7
--- NOTE | 2023-01-03 08:34 | EXP.UTC ---
Discharge Plan Disposition Patient Disposition: Home, Self-Care Condition: Good Prescriptions Prescriptions: No Action atorvastatin 40 mg tablet 40 mg PO DAILY Qty: 90 3RF Rx Instructions: take one tablet by mouth once daily amlodipine 5 mg tablet 5 mg PO DAILY Rx Instructions: Take 1 tablet by mouth once daily Referrals Follow up/Referrals: Provider,Referral, MD [Primary Care Provider] - See instructions Activity Restrictions/Add. Instructions Additional Instructions/Restrictions: covid swab sent to ed. No sign of a bacterial infection. Likely viral. Viruses can take 7-14 days to run their course. Nasal saline and bulb syringe or nose Saba to remove nasal drainage to help with nasal congestion. Hard to eat, drink, sleep with nasal congestion so important to keep this cleaned out. Monitor temp. Tylenol or Motrin as needed for pain or fever Encourage fluids, water, Gatorade, Powerade, Pedialyte if infant/toddler/child Warm salt water gargles Warm fluids Sore throat lozenges Sleep elevated Humidifier/vaporizer Follow-up immediately for new or worsening symptoms or no noticeable improvement over the next 48-72 hours. Clinical Impressions Clinical Impression: Upper respiratory infection Qualifiers: URI type: unspecified viral URI Qualified Code(s): J06.9 - Acute upper respiratory infection, unspecified Instructions Patient Instructions: DI for Viral Upper Respiratory Infection -- Adult Discharge ED Provider: Bonifacio ([facility])Jaylen [facility] [place] HPI General Stated complaint: body aches, congestion, cough, runny nose Mode of Arrival: Ambulatory Source of Information: Patient Limitations: No Limitations Time Seen by Provider: 01/03/23 08:35 Description of Symptoms (Recalled from Triage Doc. by RN): Pt is having symptoms MCNEILL, face hurts, body aches, teeth pain, and bilateral ear pain. HEENT Symptoms (Recalled from RN notes): Yes Resp Symptoms (Recalled from RN notes): No Skin Symptoms (Recalled from RN notes): No MS Symptoms (Recalled from RN notes): No Functional Status (Recalled from RN notes): n/a History of Present Illness Provider Complaint: 72 yr old female presents for c/o MCNEILL, clear drainage, face hurts, body aches, teeth pain, and bilateral ear pain since yesterday. Related Data Home Medications Medication Instructions Recorded Confirmed amlodipine 5 mg tablet 5 mg PO DAILY blood pressure 08/20/22 01/03/23 Previous Rx's Medication Instructions Recorded atorvastatin 40 mg tablet 40 mg PO DAILY Cholesterol #90 tabs 05/14/21 Allergies Allergy/AdvReac Type Severity Reaction Status Date / Time ciprofloxacin [From Cipro] Allergy Mild fever and Verified 01/03/23 08:25 rash Worker's Comp Is this a Worker's Comp case?: No [facility] Disclaimer: The information contained in this section may have been updated after the patient was seen, as this information can be updated by other users. 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
[2023-01-03 08:42] VITALS: BP 151/92; PULSE 74; RESP 18; TEMP 36.7; O2SAT 95
== END 2023-01-03 08:42 | disposition home or self-care (01) ==
PROVIDERS: Emergency Provider Nurse Practitioner Family
DX: U07.1 COVID-19 (principal); R51.9 Headache, unspecified; H92.03 Otalgia, bilateral; K21.9 Gastro-esophageal reflux disease without esophagitis; I10 Essential (primary) hypertension; E78.5 Hyperlipidemia, unspecified; E03.9 Hypothyroidism, unspecified
CPT/HCPCS: 87635; 99212; 99213; G0463

== ENCOUNTER 2023-06-15 07:27 | Outpatient (CLI) | payer MEDICARE, OTHER, SELFPAY ==
--- NOTE | 2023-06-15 07:32 | MR_ITS ---
FINAL REPORT CLINICAL HISTORY: HX KNEE SURGERY ON MENISCUS. ENTIRE KNEE PAIN. FELL ON KNEES IN MAR. FINDINGS: Multi planar MR imaging was performed of the left knee. The anterior and posterior cruciate ligaments are intact. The quadriceps and patellar tendons are intact. There is abnormal signal and flattening of the periphery of the medial meniscus. The medial and lateral collateral ligaments appear intact. The medial and lateral retinacula appear intact. Mild hypertrophic changes are seen at the joint margin. There is an osteochondral lesion along the articular surface of the medial tibial plateau measuring 10 mm with underlying edema. This is well-seen on image 17 of series 7. A small popliteal cyst is present. IMPRESSION: Tear of the periphery of the medial meniscus with an underlying osteochondral lesion of the medial tibial plateau and associated marrow edema. Small popliteal cyst. Reviewed, Interpreted and Dictated by Ganesh Welsh MD Transcribed by Carolann Clarke Authenticated and [facility]
--- NOTE | 2023-06-15 07:32 | MR_ITS ---
FINAL REPORT CLINICAL HISTORY: WORSENING DEO KNEE PAIN. FELL ON KNEES. COMPARISON: 09/11/2022 FINDINGS: Multi planar MR imaging was performed of the right knee. The anterior and posterior cruciate ligaments are intact. The quadriceps and patellar tendons are intact. There is an oblique tear of the posterior horn of the medial meniscus well-seen on images 18 and 19 of series 4. This may be slightly more evident than on the prior exam but appears similar. The medial and lateral collateral ligaments appear intact. The medial and lateral retinacula appear intact. There is a minimal osteochondral lesion in the medial tibial plateau. A tiny popliteal cyst measuring 4.3 cm is present. IMPRESSION: Redemonstration of an oblique tear of the posterior horn of the medial meniscus. Reviewed, Interpreted and Dictated by Ganesh Welsh MD Transcribed by Carolann Clarke Authenticated and [facility]
== END 2023-06-15 23:59 | disposition home or self-care (01) ==
LOC: RAD 07:28
PROVIDERS: PCP Nurse Practitioner Family; Visit Provider Nurse Practitioner Family
DX: M25.561 Pain in right knee (principal); M25.562 Pain in left knee
CPT/HCPCS: 73721

== ENCOUNTER 2023-09-14 10:00 | Outpatient (CLI) | payer MEDICARE, OTHER, SELFPAY ==
[2023-09-14 10:30] LABS: Eosinophils # 0.1 K/mm3 (0.0-0.4); Eosinophils % 1.5 % (0.1-12.0); Hematocrit 37.7 % (37.0-47.0); Hemoglobin 11.8 g/dL (12.2-16.2); Lymphocytes # 1.3 K/mm3 (0.7-4.5); Lymphocytes % 28.6 % (10-50); Mean Corpuscular HGB Conc 31.3 g/dL (31.8-35.4); Mean Corpuscular Hemoglobin 29.7 pg (27.0-31.2); Mean Corpuscular Volume 94.9 fl (81-99); Mean Platelet Volume 7.6 fl (7.4-10.4); Monocytes # 0.2 K/mm3 (0.1-1.0); Neutrophils % 63.9 % (37.0-80.0); Platelet Count 378 K/mm3 (142-424); Red Blood Count 3.97 M/mm3 (4.20-5.40); Red Cell Distribution Width 14.6 % (11.5-17.5); White Blood Count 4.6 K/mm3 (4.8-10.8)
[2023-09-14 10:55] LABS: Chloride 109 mmol/L (98-107); Potassium 4.1 mmoL/L (3.5-5.1); Sodium 140 mmol/L (136-145)
[2023-09-14 10:58] LABS: Alanine Aminotransferase 19 U/L (12-78); Albumin Level 4.2 g/dl (3.5-5.0); Albumin/Globulin Ratio 1.4 (1.1-1.8); Alkaline Phosphatase 102 U/L (38-126); Anion Gap 9.1 mEq/L (5-15); Aspartate Amino Transferase 26 U/L (14-36); Bilirubin,Total 0.8 mg/dl (0.2-1.3); Blood Urea Nitrogen 13 mg/dl (7-17); Calcium 9.9 mg/dl (8.4-10.2); Carbon Dioxide 26 mmol/L (22.0-30.0); Estimated Glomerular Filt Rate 71 ml/min (>60); GFR (African American) 86 ML/MIN (>60); Globulin 2.9 g/dL (1.3-3.2); Glucose 97 mg/dl (74-100); Iron 56 ug/dL (37-170); Total Protein,Serum 7.1 g/dl (6.3-8.2)
[2023-09-14 11:08] LABS: Total Iron Binding Capacity 403 ug/dL (265-497)
[2023-09-14 11:15] LABS: Free Thyroxine Index 2.7 ug/dL (5.93-13.13); T4 (Thyroxine) 9.3 ug/dl (5.53-11.0); Triiodothryronine (T3) Uptake 29 % (23.5-40.5)
[2023-09-14 11:28] LABS: Thyroid Stimulating Hormone 2.18 uIU/mL (0.465-4.68)
== END 2023-09-14 23:59 | disposition home or self-care (01) ==
LOC: LAB 10:04
PROVIDERS: PCP Nurse Practitioner Family; Visit Provider Nurse Practitioner Family
DX: I10 Essential (primary) hypertension (principal); D63.8 Anemia in other chronic diseases classified elsewhere; G93.32 Myalgic encephalomyelitis/chronic fatigue syndrome
CPT/HCPCS: 36415; 80053; 83540; 83550; 84436; 84443; 84479; 85025

== ENCOUNTER 2023-12-08 11:27 | Emergency (ER) | payer MEDICARE, OTHER, SELFPAY ==
[2023-12-08 11:48] VITALS: BP 139/72; PULSE 69; RESP 16; TEMP 36.8; O2SAT 97; BMI 34.0
--- NOTE | 2023-12-08 11:49 | XR_ITS ---
FINAL REPORT TECHNIQUE: Single view of the chest and 3 views of the left ribs were performed. CLINICAL HISTORY: Acute left rib pain. COMPARISON: None. FINDINGS: Chest: Heart and mediastinum are normal. Lungs are clear. There is no pneumothorax. A large hiatal hernia is identified. Ribs: 3 views of the left ribs were performed. There is no displaced rib fracture. IMPRESSION: No displaced rib fracture. Large hiatal hernia. Reviewed, Interpreted and Dictated by Mk Valera III, MD Transcribed by Lenora Michel PA-C Authenticated and [facility]
--- NOTE | 2023-12-08 11:50 | EXP.UTC ---
Discharge Plan Disposition Patient Disposition: Home, Self-Care Condition: Good Prescriptions Prescriptions: New lidocaine 5 % adhesive patch,medicated 1 patch topical DAILY PRN (Reason: pain) Qty: 15 0RF Rx Instructions: leave on most painful area for up to 12 hrs then remove for 12 hours No Action atorvastatin 40 mg tablet 40 mg PO DAILY Qty: 90 3RF Rx Instructions: take one tablet by mouth once daily amlodipine 5 mg tablet 5 mg PO DAILY Rx Instructions: Take 1 tablet by mouth once daily Referrals Follow up/Referrals: Becky Clark APRN [Primary Care Provider] - See instructions Activity Restrictions/Add. Instructions Additional Instructions/Restrictions: Use topical lidocaine patches as prescribed place patch in most painful area and leave on for 12 hours then remove for 12 hours Make sure to take deep breaths Over the counter Motrin and/or Tylenol may help also with pain if you can take it Follow up with your Family Doctor if no improvement or any worsening of symptoms Clinical Impressions Clinical Impression: Pain in rib Instructions Patient Instructions: Lidocaine Transdermal Patch Print Language Print Language: Tristanian Discharge ED Provider: Ct Frankel [facility] HPI General Stated complaint: possible broken rib Mode of Arrival: Ambulatory Source of Information: Patient Limitations: No Limitations Time Seen by Provider: 12/08/23 11:50 Description of Symptoms (Recalled from Triage Doc. by RN): Reports possible broken rib on the left side. HEENT Symptoms (Recalled from RN notes): No Resp Symptoms (Recalled from RN notes): No Skin Symptoms (Recalled from RN notes): No MS Symptoms (Recalled from RN notes): Yes Functional Status (Recalled from RN notes): wnl History of Present Illness Provider Complaint: Patient states that she was bent over sweeping under her bed when she felt a pop in her left ribs thinks she may have broke a rib Denies falling Denies SOA Related Data Home Medications ?Medication ?Instructions ?Recorded ?Confirmed amlodipine 5 mg tablet 5 mg PO DAILY blood pressure 08/20/22 06/08/23 Previous Rx's ?Medication ?Instructions ?Recorded atorvastatin 40 mg tablet 40 mg PO DAILY Cholesterol #90 tabs 05/14/21 lidocaine 5 % topical patch 1 patch topical DAILY PRN pain #15 12/08/23 ea Allergies Allergy/AdvReac Type Severity Reaction Status Date / Time ciprofloxacin [From Cipro] Allergy Mild fever and Verified 06/08/23 10:13 rash Worker's Comp Is this a Worker's Comp case?: No [facility] Disclaimer: The information contained in this section may have been updated after the patient was seen, as this information can be updated by other users. 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 (Updated 12/08/23 @ 12:[address] APRN) Left wrist fracture Normal colonoscopy Hypothyroidism Arthritis HLD (hyperlipidemia) HTN (hypertension) Neck pain Chest pain Gastroesophageal reflux disease Palpitations Surgical History (Updated 06/08/23 @ 10:21 by MUNDO Ramos) H/O knee surgery H/O laparoscopy Hx of section Hx of hysterectomy Hx of tonsillectomy Family History (Updated 06/08/23 @ 10:22 by MUNDO Ramos) Sister Cancer Other Anemia Asthma Diabetes Heart attack Hyperlipidemia Hypertension Stroke Social History Smoking Status: Never smoker alcohol intake: never substance use type: denies use current occupational status: other Travel in the last 8 weeks: None ROS Obtained: Yes All systems reviewed & no additional complaints except as documented and Yes Systems reviewed as appropriate & no additional complaints except as documented Constitutional Constitutional: Reports system reviewed and no additional complaints, except as documented and Reports as per HPI ENT Ears, Nose, Mouth, and Throat: Reports system reviewed and no additional complaints, except as documented and Reports as per HPI Cardiovascular Cardiovascular: Reports system reviewed and no additional complaints, except as documented and Reports as per HPI Respiratory Respiratory: Reports system reviewed and no additional complaints, except as documented and Reports as per HPI Gastrointestinal Gastrointestingal: Reports system reviewed and no additional complaints, except as documented and as per HPI Musculoskeletal Musculoskeletal: Reports system reviewed and no additional complaints, except as documented, Reports as per HPI and Reports other (pain in left rib area after feeling a pop ) Physical Exam General General appearance: alert and in no apparent distress Chest Chest inspection: Present tenderness Expanded Chest Exam Female Torso: 1. reports tenderness with palpation, no bruising no swelling noted Respiratory Respiratory exam: Present normal lung sounds bilaterally; Absent respiratory distress or wheezes Cardiovascular Cardiovascular exam: Present regular rate, normal rhythm and normal heart sounds Neurological Exam Neurological exam: Present alert, oriented X3 and normal gait Medical Decision Making Medical Records Screening: Per USPSTF and CDC recommendations, given the prevalence of disease in our region, it is our hospital?s policy to screen for HIV and viral Hepatitis for all patients aged 18 and over and those with ongoing risk factors. Vernon Inquiry Pt receiving controlled substance: No Vernon was queried for this patient: No Vital Signs: 12/08/23 11:48 Temperature 98.2 F Temperature Source Oral Pulse Rate [Radial] 69 Respiratory Rate 16 Blood Pressure [Right Arm] 139/72 Blood Pressure Mean [Right Arm] 94 Blood Pressure Source [Right Arm] Automatic Cuff Blood Pressure Position [Right Arm] Sitting 02 Sat by Pulse Oximetry 97 Oxygen Delivery Method Room Air Orders (Tests/Meds): ORDERS Category Date Time Status XR ribs LT 2V Stat Exams 12/08/23 11:42 Stop Req XR ribs LT min 3V w CXR1V Stat Exams 12/08/23 11:49 Ordered Radiology Data #1: Image(s): Chest (with left ribs) Image Reviewed: Yes I have reviewed radiologist's interpretation IMPRESSION: No displaced rib fracture. Large hiatal hernia.
[2023-12-08 13:11] VITALS: BP 139/72; PULSE 69; RESP 16; TEMP 36.8; O2SAT 97
== END 2023-12-08 13:11 | disposition home or self-care (01) ==
PROVIDERS: Emergency Provider Nurse Practitioner; PCP Nurse Practitioner Family
DX: R07.81 Pleurodynia (principal); R07.82 Intercostal pain
CPT/HCPCS: 71101; 99212; G0381

== ENCOUNTER 2024-05-02 12:20 | Outpatient (CLI) | payer MEDICARE, OTHER, SELFPAY ==
[2024-05-02 12:31] LABS: Microscopic, Urine URINE MICROSCOPIC (MICROSCOPIC)
[2024-05-02 12:54] LABS: Basophils % 0.5 % (0.1-2.0); Eosinophils % 0.7 % (0.1-12.0); Hematocrit 28.4 % (37.0-47.0); Hemoglobin 8.4 g/dL (12.2-16.2); Lymphocytes # 1.3 K/mm3 (0.7-4.5); Lymphocytes % 23.7 % (10-50); Mean Corpuscular HGB Conc 29.6 g/dL (31.8-35.4); Mean Corpuscular Hemoglobin 22.3 pg (27.0-31.2); Mean Corpuscular Volume 75.3 fl (81-99); Mean Platelet Volume 8.9 fl (7.4-10.4); Monocytes # 0.5 K/mm3 (0.1-1.0); Monocytes % 8.1 % (1.7-9.3); Neutrophils # 3.7 K/mm3 (1.8-7.8); Neutrophils % 66.8 % (37.0-80.0); Platelet Count 463 K/mm3 (142-424); Red Blood Count 3.77 M/mm3 (4.20-5.40); Red Cell Distribution Width 18.4 % (11.5-17.5); White Blood Count 5.6 K/mm3 (4.8-10.8)
[2024-05-02 13:09] LABS: Appearance,Urine CLEAR (Clear); Bilirubin,Urine Negative (Negative); Blood, Urine Negative (Negative); Color,Urine YELLOW (Yellow); Glucose,Urine (UA) Negative (Negative); Ketones,Urine Negative (Negative); Leukocyte Esterase,Urine TRACE (Negative); Nitrate,Urine Negative (Negative); PH,Urine 6.5 (5.0-8.5); Protein,Urine Negative (Negative); Urobilinogen,Urine 0.2 EU/dl (0.2)
[2024-05-02 13:16] LABS: Erythrocyte Sedimentation Rate 32 mm/hr (0-30)
[2024-05-02 13:30] LABS: Amorphous Sediment,Urine Trace /lpf; Bacteria,Urine Trace /lpf; WBC,Urine Occasional #/hpf (0-3)
[2024-05-02 13:40] LABS: Albumin Level 4.8 g/dl (3.5-5.0); Chloride 104 mmol/L (98-107); Sodium 137 mmol/L (136-145)
[2024-05-02 13:41] LABS: Potassium 4.3 mmoL/L (3.5-5.1)
[2024-05-02 13:43] LABS: Alanine Aminotransferase 17 U/L (12-78); Albumin/Globulin Ratio 1.9 (1.1-1.8); Alkaline Phosphatase 108 U/L (38-126); Anion Gap 11.3 mEq/L (5-15); Aspartate Amino Transferase 24 U/L (14-36); Bilirubin,Total 0.9 mg/dl (0.2-1.3); Blood Urea Nitrogen 13 mg/dl (7-17); Carbon Dioxide 26 mmol/L (22.0-30.0); Cholesterol 238 mg/dl (140-200); Estimated Glomerular Filt Rate 71 ml/min (>60); GFR (African American) 85 ML/MIN (>60); Globulin 2.5 g/dL (1.3-3.2); Iron 28 ug/dL (37-170); Total Protein,Serum 7.3 g/dl (6.3-8.2); Triglycerides 123 mg/dl (30-150); VLDL Cholesterol 25 mg/dL (0-40)
[2024-05-02 13:44] LABS: Calcium 9.7 mg/dl (8.4-10.2); Chol/HDL Ratio 4.1 (1-3.5); Glucose 98 mg/dl (74-100); HDL Cholesterol 58 mg/dl (40-60)
[2024-05-02 13:52] LABS: C-Reactive Protein 2.9 mg/L (0-4)
[2024-05-02 13:53] LABS: Hemoglobin A1C 5.4 % (4.0-6.0)
[2024-05-02 13:55] LABS: Direct LDL Cholesterol 154.24 mg/dL (100-129)
[2024-05-02 13:56] LABS: Total Iron Binding Capacity 500 ug/dL (265-497)
[2024-05-02 13:59] LABS: Free T4 (Free Thyroxine) 1.19 ng/dl (0.78-2.19)
[2024-05-02 14:01] LABS: 25-OH Vitamin D, Total 39.5 ng/mL (30-100)
[2024-05-02 14:19] LABS: Ferritin 4.82 ng/ml (11.1-264)
[2024-05-02 14:27] LABS: HIV Combo NEGATIVE (Negative)
[2024-05-02 14:32] LABS: Hepatitis C Ab Qual. W/ RFX NEGATIVE (Negative)
[2024-05-02 15:04] LABS: Thyroid Stimulating Hormone 2.05 uIU/mL (0.465-4.68)
[2024-05-02 15:23] LABS: Vitamin B12 223 pg/mL (239-931)
[2024-05-03 14:12] LABS: Deamidated Gliadin Abs, IgA 129 units (0-19); Deamidated Gliadin Abs, IgG 69 units (0-19); Tissue Transglutaminase IgA Ab 71 U/mL (0-3); Tissue Transglutaminase IgG Ab 4 U/mL (0-5)
[2024-05-03 17:14] LABS: Endomysial IgA Antibody Positive (Negative)
[2024-05-03 19:09] LABS: H. pylori Breath Test Negative (Negative)
[2024-05-05 09:14] LABS: Reticulin IgA Antibody Negative titer (Neg:<1:2.5)
== END 2024-05-02 23:59 | disposition home or self-care (01) ==
LOC: LAB 12:21
PROVIDERS: PCP Nurse Practitioner Family; Visit Provider Nurse Practitioner Family
DX: M81.0 Age-related osteoporosis without current pathological fracture (principal); E78.5 Hyperlipidemia, unspecified; I48.91 Unspecified atrial fibrillation; K21.9 Gastro-esophageal reflux disease without esophagitis; G47.33 Obstructive sleep apnea (adult) (pediatric); D50.9 Iron deficiency anemia, unspecified; K90.0 Celiac disease; E53.8 Deficiency of other specified B group vitamins; Z11.4 Encounter for screening for human immunodeficiency virus [HIV]; Z11.59 Encounter for screening for other viral diseases
CPT/HCPCS: 36415; 80053; 80061; 81001; 82306; 82607; 82728; 83013; 83036; 83516; 83540; 83550; 84156; 84439; 84443; 85025; 85651; 86140; 86255; 86256; 86803; 87086; 87389

== ENCOUNTER 2024-06-10 11:29 | Outpatient (POV) | payer MEDICARE, OTHER, SELFPAY ==
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
== END 2024-06-10 23:59 | disposition home or self-care (01) ==
LOC: SC.PAIN 11:31
PROVIDERS: Visit Provider Nurse Practitioner Family
DX: M25.561 Pain in right knee (principal); M25.562 Pain in left knee; G89.29 Other chronic pain; M17.0 Bilateral primary osteoarthritis of knee

== ENCOUNTER 2024-06-14 11:07 | Day surgery (SDC) | payer MEDICARE, OTHER, SELFPAY ==
[2024-06-14 11:20] VITALS: BP 123/57; PULSE 75; RESP 16; TEMP 36.8; O2SAT 96; BMI 32.5
[2024-06-14 11:52] VITALS: BP 132/63; PULSE 70; RESP 16; O2SAT 98
[2024-06-14] MEDS: BUPIVACAINE 0.25% 10ML INJ 25 MG IJ (12:21)
[2024-06-14] MEDS: methylPREDNISolone ACETATE 80MG/ML VIAL 80 MG (12:22)
[2024-06-14] MEDS: LIDOCAINE 1% 5ML PF VIAL 5 ML (12:22)
[2024-06-14 12:23] VITALS: BP 123/57; PULSE 75; RESP 18; O2SAT 96
[2024-06-14 12:25] VITALS: BP 123/57; PULSE 75; RESP 18; O2SAT 96
--- NOTE | 2024-06-28 10:11 | EXP.PAIN.PRO ---
Procedure Date: 06/14/24 Time: 09:00 Anesthesiologist:: Venu Reyes CRNA Complications:: None Pre-procedure Diagnosis:: DJD bilateral knee. Chronic bilateral knee pain. Post-procedure Diagnosis:: Same. Indications for Procedure:: Patient is a pleasant 74-year-old female who comes our clinic today for bilateral intra-articular knee injections of cortisone and local anesthetic. Patient describes bilateral knee pain as constant, dull, aching. She reports difficulty with ambulation secondary to bilateral knee pain. She rates her pain 7/10. Procedure Details:: Details of the procedure explained to the patient. The patient taken procedure room placed in the sitting position. The over the right knee was cleaned using chlorhexidine as a cleansing solution. Using a 22-gauge inch and half needle the right knee joint was accessed from the anterior lateral position. After negative aspiration 4 cc of 1% lidocaine +4 cc of 0.25% Marcaine and 40 mg of Depo-Medrol was injected. Patient tolerated procedure without difficulty. There are no complications. Details of the procedure explained to the patient. The patient taken procedure room placed in the sitting position. The over the left knee was cleaned using chlorhexidine as a cleansing solution. Using a 22-gauge inch and half needle the left knee joint was accessed from the anterior lateral position. After negative aspiration 4 cc of 1% lidocaine +4 cc of 0.25% Marcaine and 40 mg of Depo-Medrol was injected. Patient tolerated procedure without difficulty. There are no complications. Plan and Disposition:: Patient was discharged without incident.
== END 2024-06-14 11:52 | disposition home or self-care (01) ==
LOC: SC.PAINP 11:08
PROVIDERS: Visit Provider Nurse Anesthetist, Certified Registered
DX: M17.0 Bilateral primary osteoarthritis of knee (principal); M25.561 Pain in right knee; M25.562 Pain in left knee; G89.29 Other chronic pain
CPT/HCPCS: 20610; J1010

== ENCOUNTER 2024-06-21 09:11 | Outpatient (CLI) | payer MEDICARE, OTHER, SELFPAY ==
[2024-06-21 13:56] LABS: Occult Blood,Stool Negative (Negative)
== END 2024-06-21 23:59 | disposition home or self-care (01) ==
LOC: LAB 09:12
PROVIDERS: PCP Nurse Practitioner Family; Visit Provider Internal Medicine Gastroenterology
DX: D64.9 Anemia, unspecified (principal)
CPT/HCPCS: 82272; G0328

== ENCOUNTER 2024-07-05 10:03 | Outpatient (POV) | payer MEDICARE, OTHER, SELFPAY ==
[2024-07-05 10:37] VITALS: BP 119/62; PULSE 70; RESP 14; O2SAT 99; BMI 32.4
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
== END 2024-07-05 23:59 | disposition home or self-care (01) ==
LOC: SC.PAIN 10:04
PROVIDERS: PCP Nurse Practitioner Family; Visit Provider Nurse Practitioner Family
DX: M25.562 Pain in left knee (principal); Z73.89 Other problems related to life management difficulty
CPT/HCPCS: 99212; G0463

== ENCOUNTER 2024-08-01 08:39 | Outpatient (CLI) | payer MEDICARE, OTHER, SELFPAY ==
--- NOTE | 2024-08-01 09:15 | XR_ITS ---
FINAL REPORT TECHNIQUE: Bone densitometry calculations of the lumbar spine and bilateral hips were obtained. CLINICAL HISTORY: osteopenia COMPARISON: 08/28/2022 FINDINGS: Using L1-4, the bone mineral density of the spine is 0.788 g/cm2, corresponding to T-score of -2.4 and a Z score of -0.1. This is within the range of osteopenia. Using the left hip, the bone mineral density of the femoral neck is 0.626 g/cm2, corresponding to a T-score of -2.0 and a Z-score of -0.1. This is within the range of osteopenia. Using the right hip, the bone mineral density of the femoral neck is 0.688 g/cm?, corresponding to a T-score of -1.4 and a Z-score of 0.5. This is within the range of osteopenia. NOTE: T-score: Standard deviation compared with peak bone mass of young adult mean. *Following the recommendations of the International Society of Bone densitometry, classification of hip BMD is based on the lower of two T-scores; total hip or femoral neck. IMPRESSION: 1. Bone mineral density of the lumbar spine within the range of osteopenia. 2. Bone mineral density of the bilateral femoral necks within the range of osteopenia. Reviewed, Interpreted and Dictated by Rosemary Ross MD Transcribed by Funmilayo Cabrera Authenticated and . [facility]
== END 2024-08-01 23:59 | disposition home or self-care (01) ==
LOC: RAD 08:40
PROVIDERS: PCP Nurse Practitioner Family; Visit Provider Nurse Practitioner Family
DX: Z13.820 Encounter for screening for osteoporosis (principal); M85.88 Other specified disorders of bone density and structure, other site; M85.851 Other specified disorders of bone density and structure, right thigh; M85.852 Other specified disorders of bone density and structure, left thigh
CPT/HCPCS: 77080

== ENCOUNTER 2024-08-04 10:29 | Outpatient (CLI) | payer MEDICARE, OTHER, SELFPAY ==
[2024-08-04 15:09] LABS: Basophils % 0.6 % (0.1-2.0); Eosinophils # 0.1 Kmm3 (0.0-0.4); Hematocrit 39.7 % (37.0-47.0); Hemoglobin 12.7 g/dL (12.2-16.2); Immature Granulocytes # 0.01 10^3uL; Immature Granulocytes % 0.2 %; Mean Corpuscular Hemoglobin 31.2 pg (27.0-31.2); Mean Corpuscular Volume 97.5 fl (81-99); Mean Platelet Volume 10.2 fl (7.4-10.4); Monocytes # 0.4 K/mm3 (0.1-1.0); Neutrophils # 3.3 K/mm3 (1.8-7.8); Neutrophils % 68.2 % (37.0-80.0); Nucleated Red Blood Cells # 0 10^3/uL; Nucleated Red Blood Cells % 0 %; Platelet Count 299 K/mm3 (142-424); Red Blood Count 4.07 M/mm3 (4.20-5.40); Red Cell Distribution Width 19.7 % (11.5-17.5); Red Cell Distribution Width-SD 48.2 fL; White Blood Count 4.9 K/mm3 (4.8-10.8)
[2024-08-04 15:43] LABS: Iron 102 ug/dL (37-170)
[2024-08-04 15:52] LABS: Total Iron Binding Capacity 263 ug/dL (265-497)
[2024-08-04 16:19] LABS: Ferritin 221 ng/ml (11.1-264)
--- OUTSIDE RECORDS SUMMARY | 2024-08-05 13:07 | XMS_ITS | Referral Summary ---
Author Organization [employer] Address [address] [facility] [place] [address] Care Team Providers Care Professor Of Genetics Name Role Phone Becky Clark Primary Care Provider [phone] Encounters Date Type Department Care Team Description 05/23/2024 Travel 05/23/2024 9:00 AM EDT Infusion [facility] [address] [place] [address] Jacob Justin MD Iron deficiency anemia, unspecified iron deficiency anemia type (Primary Dx); Intestinal malabsorption, unspecified type 05/23/2024 8:30 AM EDT Office Visit [facility] [address] [place] [address] Jacob Justin MD Intestinal malabsorption, unspecified type 05/20/2024 Travel 05/20/2024 8:30 AM EDT Infusion [facility] [address] [place] [address] Jacob Justin MD Iron deficiency anemia, unspecified iron deficiency anemia type (Primary Dx); Intestinal malabsorption, unspecified type 05/19/2024 Orders Only [facility] [address] [place] [address] Deejay Knight, PharmD BCPS Intestinal malabsorption, unspecified type (Primary Dx); Iron deficiency anemia, unspecified iron deficiency anemia type 05/16/2024 Travel 05/16/2024 8:30 AM EDT Infusion [facility] [address] [place] [address] Jacob Justin MD Iron deficiency anemia, unspecified iron deficiency anemia type (Primary Dx); Intestinal malabsorption, unspecified type 05/13/2024 Travel 05/13/2024 8:30 AM EDT Infusion [facility] [address] [place] [address] Jacob Justin MD Iron deficiency anemia, unspecified iron deficiency anemia type (Primary Dx); Intestinal malabsorption, unspecified type 05/09/2024 Orders Only [facility] [address] [place] [address] Deejay Knight, PharmD BCPS 05/09/2024 Travel 05/09/2024 9:15 AM EDT Infusion [facility] [address] [place] [address] Jacob Justin MD Iron deficiency anemia, unspecified iron deficiency anemia type (Primary Dx); Intestinal malabsorption, unspecified type 05/09/2024 8:45 AM EDT Office Visit [facility] [address] [place] [address] Jacob Justin MD Intestinal malabsorption, unspecified type (Primary Dx) 05/06/2024 Orders Only [facility] [address] [place] [address] Deejay Knight, PharmD BCPS Intestinal malabsorption, unspecified type (Primary Dx); Iron deficiency anemia, unspecified iron deficiency anemia type 05/05/2024 Orders Only [facility] [address] [place] [address] Jacob Justin MD 05/05/2024 Telephone [facility] [address] [place] [address] Jacob Justin MD low iron concerns from Last 3 Months Allergies Active Allergy Reactions Criticality Noted Date Comments Ciprofloxacin 11/17/2022 Medications atorvastatin (LIPITOR) 10 MG tablet Take 1 tablet (10 mg total) by mouth daily. Active amLODIPine (NORVASC) 10 MG tablet Take 10 mg by mouth daily. Active Active Problems Problem Noted Date Diagnosed Date Iron deficiency anemia, unspecified 11/18/2022 Intestinal malabsorption, unspecified type 11/18 Social History Tobacco Use Types Packs/Day Years Used Date Smoking Tobacco: Never Smokeless Tobacco: Never Tobacco Cessation:Counseling Given: Not Answered Alcohol Use Standard Drinks/Week Comments Yes 0 (1 standard drink = 0.6 oz pur e alcohol) Occasionally Interpersonal Safety Answer Date Record ed Family or friends hurt you Not on file 03/13 Family or friends insult you Not on file 01/2024 Family or friends threaten you Not on file 0 03/13/2023 Family or friends scream or curse at you Not on file 03/13/2023 Housing Stability Answer Date Recorded Living situation today Not on file Living situation problems Not on file 2023 Family and Community Support Answer Owen e Recorded Help with Day to Day Activities Not on file 03/13/2023 Feeling Lonely or Isolated Not on file 03/13 Educational Attainment Answer Date Bryan rded Speak language other than Belizean at home Not on file 03/13/2023 Want help with school or training Not on file 03/13/2023 Depression Answer Date Recorded PHQ-2 Risk Not on file 03/13/2023 Disabilities Answer Date Recorded Difficulty concentrating Not on file 024 Difficulty doing errands alone Not on file 0 03/13/2023 Substance Use Answer Date Recorded Used prescription meds for non-medical reasons N ot on file 03/13/2023 Used illegal drugs past 12 months Not on file 03/13/2023 Comments No Sex and Gender Information Value Date Recorded Sex Assigned at Not on file Legal Sex Female 4:06 PM CDT Gender Identity Not on file Sexual Orientation Not on file Last Filed Vital Signs Vital Sign Reading Time Taken Comments Blood Pressure 118/62 05/23/2024 11:05 AM EDT Pulse 73 05/23/2024 11:05 AM EDT Temperature 36.3 C (97.3 F) 05/23/2024 11:05 AM EDT Respiratory Rate 16 05/23/2024 11:05 AM EDT Oxygen Saturation 98% 05/23/2024 11:05 AM EDT Inhaled Oxygen Concentration - - Weight 90.8 kg (200 lb 3.2 oz) 05/23/2024 8:34 A M EDT Height 162.6 cm (5' 4 ) 05/23/2024 8:34 AM EDT Body Mass Index 34.36 05/23/2024 8:34 AM EDT Plan of Treatment Upcoming Encounters Date Type Department Care Team (Late st Contact Info) Description 09/05/2024 2:30 PM EDT Office Visit [facility] [address] [place] [address] Jacob Justin MD [facility] [address] [place] [address] 11/18/2024 9:30 AM EDT Office Visit [facility] [address] [place] [address] Jacob Justin MD [address] [place] [address] Procedures Procedure Name Priority Date/Time Associated Diagnosis Comments CBC W/ AUTO DIFF Routine 05/23/2024 8:32 AM EDT Intestinal malabsorption, unspecified type from Last 3 Months Results * (ABNORMAL) CBC with automated diff (05/23/2024 8:32 AM EDT) WBC 5.0 4.5 - 12.5 K/ L 05/23/2024 8:42 AM EDT [facility] RBC 4.07 4.00 - 5.25 M/ L 05/23/2024 8:42 AM EDT [facility] Hemoglobin 10.4(L) 12.0 - 16.0 GM/DL 05/23/2024 8:42 AM EDT [facility] Hematocrit 35.0(L) 36.0 - 46.0 % 05/23/2024 8:42 AM EDT [facility] MCV 86 80 - 100 fL 05/23/2024 8:42 AM EDT [facility] MCH 25.6(L) 26.0 - 34.0 pg 05/23/2024 8:42 AM EDT [facility] MCHC 29.7(L) 31.0 - 37.0 GM/DL 05/23/2024 8:42 AM EDT [facility] RDW 28.6(H) 12.0 - 16.8 % 05/23/2024 8:42 AM EDT [facility] Platelets 364 140 - 440 K/CU MM 05/23/2024 8:42 AM EDT [facility] MPV 8.8 7.4 - 10.4 fL 05/23/2024 8:42 AM EDT [facility] % Neutros 71 45 - 80 % 05/23/2024 8:42 AM EDT [facility] % Lymphs 17 15 - 45 % 05/23/2024 8:42 AM EDT [facility] % Monos 11(H) 0 - 10 % 05/23/2024 8:42 AM EDT [facility] % Eos 1 0 - 5 % 05/23/2024 8:42 AM EDT [facility] % Baso 0 0 - 3 % 05/23/2024 8:42 AM EDT [facility] # Neutros 3.58 2.00 - 8.80 K/ L 05/23/2024 8:42 AM EDT [facility] # Lymphs 0.84 0.70 - 5.50 K/ L 05/23/2024 8:42 AM EDT [facility] # Monos 0.55 0.00 - 1.70 K/ L 05/23/2024 8:42 AM EDT [facility] # Eos 0.06 0.00 - 0.80 K/ L 05/23/2024 8:42 AM EDT [facility] # Baso 0.01 0.00 - 0.20 K/ L 05/23/2024 8:42 AM EDT [facility] Blood Venipuncture / Unknown 05/23/2024 8:32 AM EDT 05/23/2024 8:35 AM EDT Narrative [facility] - 05/23/2024 8:42 AM EDT When CBC w/ Auto Diff is ordered the lab will add a Manual Differential as a quality check at no additional charge if: Lymphocytes greater than seventy five percent with normal or increased WBC Monocytes greater than Fifteen percent Basophil greater than four percent Bands >10% or several immature myeloids are seen on scan Blast? Flag noted Atypical Lymph flag noted us Jacob Justin MD LAB BLOOD ORDERABLES Final Res ult [facility] [address] [place] [address], [place] [phone] from Last 3 Months Insurance MEDICARE PART A B Care Teams Professor Of Genetics Relationship Specialty Start Date End Date Becky Clark [address] [facility] [address] [place] [address] PCP - General 01/19/23
--- OUTSIDE RECORDS SUMMARY | 2024-08-05 13:07 | XMS_ITS | Data Portability ---
Author Organization [facility] Address [address] [place] [address] Assessment Encounter Date Assessment Date Assessment LastModified by Organization Details LastModified Time 03/13/2023 03/13/2023 Patient is a pleasant 72-year-old female who presents today for bilateral intra-articular knee injections. We are currently treating the patient for bilateral knee pain/osteoarthrit is. Patient is a patient out of our [place] office however is just coming to the [facility] for the injections today. Patient rates her pain a 5 out of 10. Patient denies any new trauma or injury from her last visit. Patient does state that she continues to have aching, throbbing sensations within her knees with popping and cracking with ambulation. Patient denies any previous knee replacements. Patient has had intra-articular injections in the past that did provide significant improvement lasting several months. Patient does state the pain interferes with her ability to perform activities of daily living such as cooking and cleaning or even simple ambulation. Patient would like to proceed forward with her intra-articular injections today. Patient tolerated her intra-articular bilateral knee injections with no complications and was discharged neurologically intact. Patient will follow-up in office at the [facility] in 2 weeks for reevaluation of symptoms and plan of care. Patient has been instructed to contact the clinic with any concerns before the next appointment. Dr. Tejeda has reviewed this note and agrees with this plan of care. This note was dictated using voice recognition software and may contain errors or omissions. [email or web address] Not available 03/13/2023 12:18:33 Plan of Treatment Reminders Order Date Submit Date Provider Last Modified By Organization Details Last Modified Time Details Appointments None record ed. Lab None record ed. Referral None record ed. Procedures None record ed. Surgeries None record ed. Imaging None record ed. Medication Orders None record ed. Patient TargetsNo targets recorded. Patient InstructionsNo instructions recorded. Reason for Referral None Reported. Problems Name Problem SNOMED Code Status Onset Date Resolution Date Notes Provider Name and Address Organization Details Recorded Time Bilateral arthritis of knees 39284213319596 08 Active 2023 Becky Clark, RIG SUPERVISOR [address] [facility],[address], [address], [place] [facility] 4 12:18:45 Pain of bilateral knee joints 37377819875043 4 Active 2023 Becky Clark, RIG SUPERVISOR [address] [facility],[place] [address], [place], [address], [place] [facility] 4 12:18:53 Problem Notes None recorded. Procedures Surgical History Date Name Laterality Status Provider Name and Address Organization Details Recorded Time Knee Joint Injection completed Becky Clark, RIG SUPERVISOR [address] [facility],[address], [address], [place] [facility] 03/13/2023 12:31:56 Imaging Results None recorded. Procedure Notes None recorded. Medical Equipment None Reported. Medications Name Sig Start Date Stop Date Status Note LastModified by Organization Details LastModified Time amoxicillin 500 mg capsule TAKE 2 CAPSULES BY MOUTH THREE TIMES DAILY active Not Available Not Available Not Available atorvastatin 40 mg tablet TAKE 1 TABLET BY MOUTH ONCE DAILY active Not Available Not Available No t Available clotrimazole 10 mg lavell DISSOLVE 1 TABLET BY MOUTH THREE TIMES DAILY FOR 14 DAYS active Not Available Not Available Not Available nystatin 100,000 unit/mL oral suspension SHAKE LIQUID AND TAKE 4 ML BY MOUTH FOUR TIMES DAILY FOR 14 DAYS active Not Available Not Available No t Available azithromycin 250 mg tablet TAKE 2 TABLETS BY MOUTH ON DAY 1, AND THEN TAKE 1 TABLET BY MOUTH ONCE A DAY ON DAY 2 THROUGH DAY 5 active Not Available Not Available No t Available prednisone 20 mg tablet TAKE 1 TABLET BY MOUTH TWICE DAILY active Not Available Not Available No t Available amlodipine 5 mg tablet TAKE 1 TABLET BY MOUTH ONCE DAILY active Not Available Not Available No t Available meclizine 25 mg tablet TAKE 1 TABLET BY MOUTH ONCE DAILY UP TO 4 TIMES A DAY active Not Available Not Available No t Available cyanocobalam in (vit B-12) 1,000 mcg/mL injection solution INJECT 1 ML INTRAMUSCUL ABIGAIL ONCE A WEEK active Not Available Not Available No t Available ferrous sulfate 325 mg (65 mg iron) tablet TAKE 1 TABLET BY MOUTH ONCE DAILY active Not Available Not Available No t Available ropinirole 0.5 mg tablet TAKE 1 TABLET BY MOUTH ONCE DAILY 1-3 HOURS BEFORE BEDTIME active Not Available Not Available No t Available Pro Fe 180 mg iron capsule TAKE 1 CAPSULE BY MOUTH TWICE DAILY active Not Available Not Available No t Available Vitals None Recorded Social History Question Answer Notes LastModified by [employer] ion Details LastModified Time Tobacco Smoking Status Never Smoker Jess Muirharpreet britton [place] - [facility] 03/13/2023 12:26:08 Do You Have An Advance Directive? Yes [email or web address] Information not available 03/13/2023 Do You Have A Medical Power Of Watchmaker Apprentice? Yes [email or web address] Information not available 03/13/2023 Sex: Unknown Functional Status Question Answer Note LastModified by Organizat ion Details LastModified Time Do you use any illicit or recreational drugs? No [email or web address] Information not available 03/13/2023 What is your level of alcohol consumption? Occasional [email or web address] Information not available 03/13/2023 Are you currently employed? Yes [email or web address] Information not available 03/13/2023 Mental Status None recorded. Family History Nothing Reported. 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 Condition Response Coronary Artery Disease N Gout N Hernia N Head Trauma/Injury N Thyroid Problems N Depression N COPD N Anemia N Ulcers N Heart Attack (MS) N Anxiety Disorder N Diabetes N Bleeding Disorder N Arthritis N Tuberculosis N AIDS/HIV N Acid Reflux (GERD) N Cancer N Stroke N Asthma N Substance Abuse N Back Injury N High Cholesterol N Hepatitis N Liver Disease N Heart Disease N Headaches N Fibromyalgia N Hypertension N Osteoporosis N Kidney Disease N Gynecological HistoryNo gynecological history recorded. Obstetrics History GPAL:G 0 P 0 0 0 0 Past Encounters Encounter ID Performer Location Encounter Start Date Encounter Closed Date Diagnosis/Indication Diagnosis SNOMED-CT Code Diagnosis ICD10 Code Diagnosis Note [id number] Becky Clark NP [address] [place] [address] 03/13/2023 12:12:26 03/13/2023 12:56:20 Knee pain 21420185 M25.569 Bilateral arthritis of knees 8079866370 956893 M13.861 Pain of bi lateral knee joints 1878978154 71349 M25.561 Health Concerns Section Related Observation LastModified by Organization Detai ls LastModified Time None Recorded Concern Status LastModified by Organization Details LastModified Time None Recorded Advance Directives Directive Y: Payers Encounter Date Sequence Insurance Name Policy Number Policy Carson Covered Member ID Carson Member ID Guarantor Name 03/13/2023 1 [employer] (MEDICARE REPLACEMENT/ ADVANTAGE - HMO) Jayda Iraheta [id number] Jayda Iraheta OBGyn Episode No OBEpisode recorded.
--- OUTSIDE RECORDS SUMMARY | 2024-08-05 13:07 | XMS_ITS | Data Portability ---
Author Organization [facility] Address [address] [place] [address] Assessment No assessment recorded. Plan of Treatment Reminders Order Date Submit Date Provider Last Modified By Organization Details Last Modified Time Details Appointments None record ed. Lab None record ed. Referral None record ed. Procedures None record ed. Surgeries None record ed. Imaging None record ed. Medication Orders None record ed. Patient TargetsNo targets recorded. Patient Instructions Encounter Date Encounter Id Patient Instructions Last Modified By Organization Details Last Modified Time 04/16/2022 [id number] 1-Discussed findings with Ms. Iraheta and Dr. Key Rubio MD. 2-F/u with Dr. Rubio this date. 3-F/u hearing testing as directed. [email or web address] Not available 04/16/2022 13:58:14 Reason for Referral None Reported. Results Created Date Observation Date Name Description Value Unit Range Abnormal Flag Note LastModifiedBy Organization Detail LastModifiedTime 04/16/19 23 04/16/2022 audio gram No observ ation record ed. BARCODE Not Available 2022 15:42:44 Result Notes None recorded. Problems Name Problem SNOMED Code Status Onset Date Resolution Date Notes Provider Name and Address Organization Details Recorded Time Abnormal auditory perception 85813259 Active 023 TANISHA HUI, AUD [address] , [place], [address] , [facility] [place] 13:57:52 Problem Notes None recorded. Procedures Surgical History Date Name Laterality Status Provider Name and Address Organization Details Recorded Time Hysterectomy completed Brenda Del Angel [facility] [place] 04/16/2022 13:24:39 procedure on back completed Brenda Del Angel [facility] [place] 04/16/2022 13:24:51 Imaging Results None recorded. Procedure Notes None recorded. Medical Equipment None Reported. Allergies Allergen ID Allergen Name Allergen Category Reaction Reaction Severity Criticality Documentation Date Start Date Code Code System Note Provider Name and Address Organization Details Recorded Time 17364 Cipro medicatio n rash Not available high 04/16/2022 54538 3 RxNorm Brenda Del Angel [facility] & [place] 3 13:19:52 Medications Name Sig Start Date Stop Date Status Note LastModified by Organization Details LastModified Time atorvastati n 40 mg tablet TAKE 1 TABLET BY MOUTH ONCE DAILY active Not Available Not Available No t Available nystatin 100,000 unit/mL oral suspension SHAKE LIQUID AND TAKE 4 ML BY MOUTH FOUR TIMES DAILY FOR 14 DAYS 04/16 completed Not Available Not Available Not Available amlodipine 5 mg tablet TAKE 1 TABLET BY MOUTH ONCE DAILY active Not Available Not Available No t Available meclizine 25 mg tablet TAKE 1 TABLET BY MOUTH ONCE DAILY UP TO 4 TIMES A DAY active Not Available Not Available No t Available amoxicillin 875 mg-potassiu m clavulanate 125 mg tablet TAKE 1 TABLET BY MOUTH EVERY 12 HOURS FOR 10 DAYS 04/16 completed Not Available Not Available Not Available FeroSul 325 mg (65 mg iron) tablet TAKE 1 TABLET BY MOUTH ONCE DAILY 04/16 completed Not Available Not Available Not Available Clenpiq 10 mg-3.5 gram-12 gram/160 mL oral solution TAKE DIRECTED PER YOUR PHYSICIAN S INSTRUCTI ONS 04/16 completed Not Available Not Available Not Available Vitals Date Recorded Body height Body mass index (BMI) Body weight Body temperature Heart rate Systolic blood pressure Diastolic blood pressure Provider Name and Address Organization Details Last Updated DateTime 3 165.1 cm 32.9 kg/m2 73588.2 9 g 99 [degF] 83 /min 114 mm[Hg] 65 mm[Hg] Brenda Del Angel [facility] [place] 3 13:19:28 Social History None recorded. Functional Status None recorded. Mental Status None recorded. Family History Nothing Reported. 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 Condition Response Allergies/Hayfever N Heart Problems N None N Heart Conditions N Emphysema N Migraines N Thyroid Problems N Developmental Delay N Depression N Glaucoma N Anemia N Immune System Disorder N Anesthesia Complications N Heart Attack (MT) N Anxiety Disorder N Diabetes N Bleeding Disorder N Arthritis N Hearing Loss N Tuberculosis N Acid Reflux (GERD) Y Hyperlipidemia N Cancer N Stroke N Asthma N Sleep Disorder N GERD/Reflux N Heart Disease N Fibromyalgia N Headaches N Hypertension Y Speech Delay N Kidney Disease N Gynecological HistoryNo gynecological history recorded. Obstetrics History GPAL:G 0 P 0 0 0 0 Past Encounters Encounter ID Performer Location Encounter Start Date Encounter Closed Date Diagnosis/Indication Diagnosis SNOMED-CT Code Diagnosis ICD10 Code Diagnosis Note [id number] Key Rubio MD [facility] [place] [address] [address] [place] [id number] 04/16/2022 13:13:31 04/16/2022 13:58:27 Dizziness and giddiness 595486073 R42 Margi Hallpike negative in the office today. I suspect PT aligned her crystals. Encouraged her to start [place] exercises should the dizziness return. I do not see any fluid in either ear. Will get audiogram in office today for baseline. I will see her back as needed. [id number] LEE PAZ [facility] [place] [address] [address] [place] [address] 04/16/2022 13:51:14 04/16/2022 13:56:20 Abnormal auditory perception 51363876 H93.299 Health Concerns Section Related Observation LastModified by Organization Detai ls LastModified Time None Recorded Concern Status LastModified by Organization Details LastModified Time None Recorded Advance Directives Directive None Recorded Payers Insurance Date Sequence Insurance Name Policy Number Policy Carson Covered Member ID Carson Member ID Guarantor Name 05/01/2022 1 [employer] (MEDICARE REPLACEMENT/ ADVANTAGE - HMO) Jayda Iraheta [id number] Jayda Iraheta 04/16/2022 1 [place] Jayda Iraheta [id number] Jayda Iraheta 04/24/2022 1 [employer] Jayda Iraheta [id number] Jayda Iraheta Notes Date Note Type Note Provider Name and Address Organization Details Recorded Time 04/16/2022 text/html 72yo female in t he office today to discuss dizziness. Patient was seen in our office in 2019 for vertigo, where Hallpike was positive on the left. Much like that event, she was in PT and they performed an Dena maneuver that has helped. She hasn't had any dizziness since. States this is again on the left side. States she is having trouble with fluid on her ears. Feels as though this is going to turn into a sinus infection. Key Rubio MD [address], [place], [address], [facility] & [place] 04/28/2022 11:48:49 04/16/2022 text/html Ms. Iraheta was seen today for an audiologic evaluation due to concerns about hearing decline per Dr. Key Rubio MD. Ms. Iraheta denies any significant communication disruptions. She also denies tinnitus, dizziness, drainage, aural fullness/pressure, and excessive noise exposure. Otoscopic inspection was unremarkable bilaterally. TANISHA HUI, LEE [address], [place], [address], [facility] & [place] 04/16/2022 13:58:26 OBGyn Episode No OBEpisode recorded.
--- OUTSIDE RECORDS SUMMARY | 2024-08-05 13:07 | XMS_ITS | Clinical Summary ---
Author Organization [facility] [facility] [employer] Address [address] [place] [address] Care Team Providers Care Assistant Track Coach Name Role Phone Becky Clark Primary Care Provider [phone] Allergies Active Allergy Reactions Criticality Noted Date Comments Ciprofloxacin 11/17/2022 Medications atorvastatin (LIPITOR) 10 MG tablet Take 1 tablet (10 mg total) by mouth daily. Active amLODIPine (NORVASC) 10 MG tablet Take 10 mg by mouth daily. Active Active Problems Problem Noted Date Diagnosed Date Iron deficiency anemia, unspecified 11/18/2022 Intestinal malabsorption, unspecified type 11/18 Encounters Date Type Department Care Team Description 05/23/2024 9:00 AM EDT Infusion [facility] [address] [place] [address] Jacob Justin MD Iron deficiency anemia, unspecified iron deficiency anemia type (Primary Dx); Intestinal malabsorption, unspecified type 05/23/2024 8:30 AM EDT Office Visit [facility] [address] [place] [address] Jacob Justin MD Intestinal malabsorption, unspecified type 05/23/2024 Travel 05/20/2024 8:30 AM EDT Infusion [facility] [address] [place] [address] Jacob Justin MD Iron deficiency anemia, unspecified iron deficiency anemia type (Primary Dx); Intestinal malabsorption, unspecified type 05/20/2024 Travel 05/19/2024 Orders Only [facility] [address] [place] [address] Deejay Knight, PharmD BCPS Intestinal malabsorption, unspecified type (Primary Dx); Iron deficiency anemia, unspecified iron deficiency anemia type 05/16/2024 8:30 AM EDT Infusion [facility] [address] [place] [address] Jacob Justin MD Iron deficiency anemia, unspecified iron deficiency anemia type (Primary Dx); Intestinal malabsorption, unspecified type 05/16/2024 Travel 05/13/2024 8:30 AM EDT Infusion [facility] [address] [place] [address] Jacob Justin MD Iron deficiency anemia, unspecified iron deficiency anemia type (Primary Dx); Intestinal malabsorption, unspecified type 05/13/2024 Travel 05/09/2024 9:15 AM EDT Infusion [facility] [address] [place] [address] Jacob Justin MD Iron deficiency anemia, unspecified iron deficiency anemia type (Primary Dx); Intestinal malabsorption, unspecified type 05/09/2024 8:45 AM EDT Office Visit [facility] [address] [place] [address] Jacob Justin MD Intestinal malabsorption, unspecified type (Primary Dx) 05/09/2024 Orders Only [facility] [address] [place] [address] Deejay Knight, PharmD BCPS 05/09/2024 Travel 05/06/2024 Orders Only [facility] [address] [place] [address] Deejay Knight, PharmD BCPS Intestinal malabsorption, unspecified type (Primary Dx); Iron deficiency anemia, unspecified iron deficiency anemia type 05/05/2024 Orders Only [facility] [address] [place] [address] Jacob Justin MD 05/05/2024 Telephone [facility] [address] [place] [address] Jacob Justin MD low iron concerns from Last 3 Months Social History Tobacco Use Types Packs/Day Years [...] Date Bryan rded Speak language other than [place] at home Not on file 03/13/2023 Want [...] Description 09/05/2024 2:30 PM EDT Office Visit [facility] [address] [place] [address] Jacob Justin MD [address] [place] [address] 11/18/2024 9:30 AM EDT Office Visit [facility] [address] [place] [address] Jacob Justin MD [address] [place] [address] Health Maintenance Due Date Last Done Comments CT Colonography 1952 Colonoscopy 1952 Colorectal Cancer Screening 1952 DXA SCAN 1952 FOBT/FIT 1952 Fit-DNA (Cologuard) 1952 Sigmoidoscopy 1952 Depression Screening (12+) 1964 Hepatitis C Screening 1970 DTAP/TDAP/TD VACCINES (2 - T d or Tdap) 10/10/2012 10/10/2002 Breast Cancer Screening 07/01/2015 06/30/2013 Medicare Initial AWV [id number] 04/03/2018 COVID-19 VACCINE ( season) 2023, 05/16/2020 Falls Risk Screening 03/02/2024 Influenza Vaccine (Season Ended) 2024 12/12/19 Tobacco Cessation Counseling and Screening (12+) 05/23/2025 05/23/2024 Respiratory Syncytial Virus (RSV) Adult or (1 - 1-dose 75+ series) 2027 Shingles Vaccine (Zoster) Completed 09/09/2017, Pneumococcal 50+ years Completed , 11/29/2018, 11/11/2017 Procedures Procedure Name Priority Date/Time Associated Diagnosis [...] [facility] [address] [place] [address], [facility] [phone] from Last 3 Months Insurance MEDICARE PART A B Care Teams Assistant Track Coach Relationship Specialty Start Date End Date Becky Clark [facility] [address] [place] [address] PCP - General 01/19/23
== END 2024-08-04 23:59 | disposition home or self-care (01) ==
LOC: LAB.DROPOF 08-05 13:04
PROVIDERS: PCP Nurse Practitioner Family; Visit Provider Nurse Practitioner Family
DX: K90.0 Celiac disease (principal); D50.9 Iron deficiency anemia, unspecified; R53.83 Other fatigue
CPT/HCPCS: 82728; 83540; 83550; 85025

== ENCOUNTER 2024-08-10 11:44 | Day surgery (SDC) | payer MEDICARE, OTHER, SELFPAY ==
[2024-08-09 14:17] VITALS: BMI 32.4
[2024-08-10 12:53] VITALS: BP 124/71; PULSE 49; RESP 18; TEMP 36.1; O2SAT 99
[2024-08-10] MEDS: LACTATED RINGERS 1000ML 1,000 ML 50 ML IV (12:57)
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
--- NOTE | 2024-08-10 13:33 | P.PCN_ITS ---
[facility] Procedure Note Date: 08/10/24 Time: 13:42 Procedure Note:: Upper Endoscopy Procedure Report: Esophagogastroduodenoscopy with cold biopsies Endoscopost: Moi Washington II, MD Referring Physician: RUDY Brock Date of Procedure: August 10, 2024 Equipment: Olympus GIF 190 standard upper endoscope Sedation: MAC sedation Indications: Mrs. Iraheta is a 74-year-old female who is here for diagnostic EGD secondary to positive celiac markers. She has had chronic iron deficiency anemia. More recently, her PCP (RUDY Brokc) sent celiac serologic testing which was strongly positive for celiac disease. She has not had an EGD. She is followed with hematology (Dr. Jacob Justin) in [place] and has had several parenteral iron infusions. This does temporarily help with her iron deficiency but she then has recurrence. She does state that she had a colonoscopy here or in [place] within the last year. We do not have any record of colonoscopy here. We did call [facility] and they said that they did not have any records since 2007. We did look in our system and there is a report of a colonoscopy by Dr. Ko Schmidt from April 2021. At that time she had 2 diminutive polyps (tubular adenoma x 1/hyperplastic polyp x 1) removed. It does state that she was placed on 5-year surveillance interval. The patient reports no melena, bright red rectal bleeding or hematochezia. She has had no abdominal pain or weight loss. She does state that she did have digestive issues as a child and does not drink dairy. She does drink almond milk. She reports no significant constipation or diarrhea. The patient does state that her niece (sister's daughter) has celiac disease. She does get some erythematous rash on her lower extremities especially in the summertime. The patient has been diagnosed with osteoporosis and at one point was on Boniva. She does have a family history of autoimmune disease. The patient's recent hemoglobin and hematocrit on 05/02 was 8.4 and 28.4 respectively. Her hemoglobin and hematocrit from 09/14/2023 was 11.8 and 37.7. The patient's recent iron testing showed serum iron 28, TIBC 500, iron saturation 5.6% and serum ferritin 4.82 indicative of marked iron deficiency. She did have normal CRP 2.9 and normal liver chemistries. Her free T4 was low previously at 2.7 recent TSH 2.05 and free T41.19 Were normal. She also had B12 deficiency with serum B12 223. Her vitamin D was 39.5 (normal). Procedure: Prior to the procedure, a history and physical exam was performed, and patient's medications and allergies were reviewed. The risks, benefits and alternatives of the sedation and procedure were discussed with the patient. All questions were answered and informed consent was obtained. The patient was brought to the procedure room. Patient identification and proposed procedure were verified by the physician and the nurse. The patient was placed in a left lateral decubitus position and the scope was passed under direct vision. Throughout the procedure, the patient's blood pressure, pulse, and oxygen saturations were m onitored continuously. The upper GI endoscopy was accomplished without difficulty. The patient tolerated the procedure well. Findings: The scope was passed directly into the upper esophagus and advanced to the fourth portion of duodenum and proximal jejunum. A cold biopsy was taken from the proximal jejunum for disaccharidase assay. The proximal jejunum was normal. Also, the 3rd and 2nd portion of duodenum were normal. There was some scalloping of the conniventes within the proximal second portion, first portion and duodenal bulb consistent with celiac disease. 6 cold biopsies were taken from the first portion of duodenum and duodenal bulb to rule out celiac disease. The scope was withdrawn through a normal pylorus into the stomach. There was mild linear antral gastropathy of the antrum. Upon retroflexion within the stomach there was a very large paraesophageal type hiatal hernia. The diaphragmatic hiatus was at 41 cm from the incisors. The top of the gastric folds and GE junction was at 30 cm from the incisors leaving a 10 cm hiatal hernia with large paraesophageal component. There were no Gurpreet's erosions. The scope was then withdrawn into the esophagus. There was no evidence of reflux esophagitis or Hayes's. The remainder of the esophageal mucosa was normal. Impression: 1. Scalloping of the duodenal conniventes with mild duodenitis consistent with celiac disease 2. Large paraesophageal type hiatal hernia (10 cm) Plan: I will discussed the findings with the patient and family. I will follow- up the biopsies for celiac disease. We will discuss gluten-free diet and if patient needs assistance, will make consultation to dietitian. I will check the disaccharidase assay. The patient does have iron deficiency secondary to the celiac disease. She is Hemoccult negative.
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
[2024-08-10 13:46] VITALS: BP 125/90; PULSE 68; RESP 16; TEMP 36.2; O2SAT 94
[2024-08-10 13:56] VITALS: BP 126/63; PULSE 65; RESP 18; O2SAT 94
[2024-08-10 14:06] VITALS: BP 140/80; PULSE 69; RESP 16; O2SAT 94
[2024-08-10 14:16] VITALS: BP 144/65; PULSE 60; RESP 16; O2SAT 99
[2024-08-10 14:39] VITALS: BP 152/85; PULSE 55; RESP 18; TEMP 36.2; O2SAT 99
[2024-08-19 14:11] LABS: Disclaimer Notes (.); Interpretation Notes (.); Lactase 0.65 (>/= 14.0); Maltase 92.84 (>/= 110.0); Palatinase 3.92 (>/= 8.5); Reference Notes (.); Sucrase 12.2 (>/= 25.0)
== END 2024-08-10 14:39 | disposition home or self-care (01) ==
PROVIDERS: PCP Nurse Practitioner Family; Visit Provider Internal Medicine Gastroenterology
PROC: 0DJ08ZZ Inspection of Upper Intestinal Tract, Via Natural or Artificial Opening Endoscopic (ICD-10-PCS; CPT 43239; principal; 2024-08-10 13:30)
DX: K90.0 Celiac disease (principal); K44.9 Diaphragmatic hernia without obstruction or gangrene; K29.80 Duodenitis without bleeding; K31.89 Other diseases of stomach and duodenum; D50.9 Iron deficiency anemia, unspecified; E78.5 Hyperlipidemia, unspecified; I10 Essential (primary) hypertension; Z86.0101 Personal history of adenomatous and serrated colon polyps; Z86.0102 Personal history of hyperplastic colon polyps; Z83.79 Family history of other diseases of the digestive system; Z79.899 Other long term (current) drug therapy; Z88.1 Allergy status to other antibiotic agents
CPT/HCPCS: 43239; 82657; 88305; J2003; J2704; J7120

== ENCOUNTER 2024-08-16 09:24 | Outpatient (CLI) | payer MEDICARE, OTHER, SELFPAY ==
--- OUTSIDE RECORDS SUMMARY | 2024-08-16 09:29 | XMS_ITS | Referral Summary ---
Author Organization [employer] [facility] Address [address] [facility] [place] [address] Care Team Providers Care Finish Mender Name Role Phone Becky Clark Primary Care Provider [phone] Encounters Date Type Department Care Team Description 05/23/2024 Travel 05/23/2024 9:00 AM EDT Infusion [facility] [address] [place] [address] Jacob Justin MD Iron deficiency anemia, unspecified iron deficiency anemia type (Primary Dx); Intestinal malabsorption, unspecified type 05/23/2024 8:30 AM EDT Office Visit [facility] [address] [place] [address] Jacob Justin MD Intestinal malabsorption, unspecified type 05/20/2024 Travel 05/20/2024 8:30 AM EDT Infusion [facility] [address] [place] [address] Jacob Justin MD Iron deficiency anemia, unspecified iron deficiency anemia type (Primary Dx); Intestinal malabsorption, unspecified type 05/19/2024 Orders Only [facility] [address] [place] [address] Deejay Knight, PharmD BCPS Intestinal malabsorption, unspecified type (Primary Dx); Iron deficiency anemia, unspecified iron deficiency anemia type 05/16/2024 Travel 05/16/2024 8:30 AM EDT Infusion [facility] [address] [place] [address] Jacob Justin MD Iron deficiency anemia, unspecified iron deficiency anemia type (Primary Dx); Intestinal malabsorption, unspecified type from Last 3 Months Allergies Active Allergy [...] Date Bryan rded Speak language other than East Timorese at home Not on file 03/13/2023 Want [...] Description 09/05/2024 2:30 PM EDT Office Visit [facility] [place] [address] [place] [address] Jacob Justin MD [facility] [address] [place] [address] 11/18/2024 9:30 AM EDT Office Visit [facility] [place] [address] [place] [address] Jacob Justin MD [address] [place] [address] Procedures Procedure Name Priority Date/Time Associated Diagnosis Comments CBC W/ AUTO DIFF Routine 05/23/2024 8:32 AM EDT Intestinal malabsorption, unspecified type from Last 3 Months Results * (ABNORMAL) CBC with automated diff (05/23/2024 8:32 AM EDT) [facility] WBC 5.0 4.5 - 12.5 K/ L [...] Res ult [facility] [place] [address] [address] [phone] from Last 3 Months Insurance MEDICARE PART A B Care Teams Finish Mender Relationship Specialty Start Date End Date Becky Clark [address] [address] PCP - General 01/19/23
--- OUTSIDE RECORDS SUMMARY | 2024-08-16 09:29 | XMS_ITS | Data Portability ---
Author Organization [facility] AD[facility] Address [address] [place] [address] Assessment No assessment recorded. Plan of Treatment [...] By Organization Details Last Modified Time 04/16/2022 [id number] 1-Discussed findings with Ms. Iraheta and Dr. Key Rubio MD. 2-F/u with Dr. Rubio this date. 3-F/u hearing testing as directed. [email or web address] Not available 04/16/2022 13:58:14 Reason for Referral [...] Organization Details Recorded Time Abnormal auditory perception 33537785 Active 023 TANISHA HUI, AUD [address] , [place], [address] , [facility] & [place] 13:57:52 Problem Notes None recorded. Procedures Surgical History Date Name Laterality Status Provider Name and Address Organization Details Recorded Time Hysterectomy completed Brenda Del Angel [facility] [place] 04/16/2022 13:24:39 procedure on back completed Brenda Del Angel [facility] [place] 04/16/2022 13:24:51 Imaging Results None recorded. Procedure Notes None recorded. Medical Equipment None Reported. Allergies Allergen ID Allergen Name Allergen Category Reaction Reaction Severity Criticality Documentation Date Start Date Code Code System Note Provider Name and Address Organization Details Recorded Time 13163 Cipro medicatio n rash Not available high 04/16/2022 87849 3 RxNorm Brenda Del Angel [facility] & [place] 3 13:19:52 Medications Name Sig Start Date [...] Updated DateTime 3 165.1 cm 32.9 kg/m2 10049.2 9 g 99 [degF] 83 /min 114 mm[Hg] 65 mm[Hg] Brenda Del Angel [facility] [place] 3 13:19:28 Social History None recorded. Functional Status None recorded. Mental Status None recorded. Family History Nothing Reported. 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 Condition Response None N Emphysema N Depression N Anxiety Disorder N Arthritis N Acid Reflux (GERD) Y Cancer N Stroke N Fibromyalgia N Headaches N Kidney Disease N Heart Problems N Heart Conditions N Migraines N Bleeding Disorder N Tuberculosis N Asthma N Sleep Disorder N GERD/Reflux N Glaucoma N Anesthesia Complications N Hearing Loss N Speech Delay N Allergies/Hayfever N Thyroid Problems N Developmental Delay N Anemia N Immune System Disorder N Heart Attack (GA) N Diabetes N Hyperlipidemia N Heart Disease N Hypertension Y Gynecological HistoryNo gynecological history recorded. Obstetrics History GPAL:G 0 P 0 0 0 0 Past Encounters Encounter ID Performer Location Encounter Start Date Encounter Closed Date Diagnosis/Indication Diagnosis SNOMED-CT Code Diagnosis ICD10 Code Diagnosis Note [id number] Key Rubio MD [facility] [place] [id number] [address] [place] [id number] 04/16/2022 13:13:31 04/16/2022 13:58:27 Dizziness and giddiness 936224608 R42 [place] Hallpike negative in the office today. I suspect PT aligned her crystals. Encouraged her to start Cawthorne exercises should the dizziness return. I do not see any fluid in either ear. Will get audiogram in office today for baseline. I will see her back as needed. [id number] LEE PAZ [facility] [place] [address] [address] [place] [address] 04/16/2022 13:51:14 04/16/2022 13:56:20 Abnormal auditory perception 88155491 H93.299 Health Concerns Section Related Observation LastModified by Organization Detai ls LastModified Time None Recorded Concern Status LastModified by Organization Details LastModified Time None Recorded Advance Directives Directive None Recorded Payers Insurance Date Sequence Insurance Name Policy Number Policy Carson Covered Member ID Carson Member ID Guarantor Name 05/01/2022 1 [employer] (MEDICARE REPLACEMENT/ ADVANTAGE - HMO) Jayda Iraheta [id number] Jayda Iraheta 04/16/2022 1 [place] Jayda Iraheta [id number] Jayda Iraheta 04/24/2022 1 [employer] Jayda Iraheta [id number] Jayda Iraheta Notes Date Note Type Note [...] infection. Key Rubio MD [address], [place], [address], [facility] [place] 04/28/2022 11:48:49 04/16/2022 text/html Ms. Iraheta was seen today for an audiologic evaluation due to concerns about hearing decline per Dr. Key Rubio MD. Ms. Iraheta denies any significant communication disruptions. She also denies tinnitus, dizziness, drainage, aural fullness/pressure, and excessive noise exposure. Otoscopic inspection was unremarkable bilaterally. TANISHA HUI, LEE [address], [place], [address], [facility] [place] 04/16/2022 13:58:26 OBGyn Episode No OBEpisode recorded.
--- OUTSIDE RECORDS SUMMARY | 2024-08-16 09:29 | XMS_ITS | Clinical Summary ---
Author Organization [employer] [facility] Address [address] [place] [address] Care Team Providers Care Case Monitor Name Role Phone Becky Clark Primary Care Provider [phone] Allergies Active Allergy Reactions Criticality Noted Date [...] Team Description 05/23/2024 9:00 AM EDT Infusion [facility] [facility] [place] [address] [place] [address] Jacob Justin MD Iron deficiency anemia, unspecified iron deficiency anemia type (Primary Dx); Intestinal malabsorption, unspecified type 05/23/2024 8:30 AM EDT Office Visit [facility] [facility] [place] [address] [place] [address] Jacob Justin MD Intestinal malabsorption, unspecified type 05/23/2024 Travel 05/20/2024 8:30 AM EDT Infusion [facility] [facility] [place] [address] [place] [address] Jacob Justin MD Iron deficiency anemia, unspecified iron deficiency anemia type (Primary Dx); Intestinal malabsorption, unspecified type 05/20/2024 Travel 05/19/2024 Orders Only [facility] [address] [place] [address] Deejay Knight, PharmD BCPS Intestinal malabsorption, unspecified type (Primary Dx); Iron deficiency anemia, unspecified iron deficiency anemia type 05/16/2024 8:30 AM EDT Infusion [facility] [facility] [place] [address] [place] [address] Jacob Justin MD Iron deficiency anemia, unspecified iron deficiency anemia type (Primary Dx); Intestinal malabsorption, unspecified type 05/16/2024 Travel from Last 3 Months Social History Tobacco [...] Date Bryan rded Speak language other than Liberian at home Not on file 03/13/2023 Want [...] Description 09/05/2024 2:30 PM EDT Office Visit [facility] [place] [address] [place] [address] Jacob Justin MD [facility] [address] [place] [address] 11/18/2024 9:30 AM EDT Office Visit [facility] [place] [address] [place] [address] Jacob Justin MD [address] [place] [address] Health Maintenance Due Date Last Done Comments Medicare Initial AWV G0438 CT Colonography 1950 Colonoscopy 1950 Colorectal Cancer Screening 1950 DXA SCAN 1950 FOBT/FIT 1950 Fit-DNA (Cologuard) 1950 Sigmoidoscopy 1950 Depression Screening (12+) 1964 Hepatitis C Screening 1970 DTAP/TDAP/TD VACCINES (2 - T d or Tdap) 10/10/2012 10/10/2002 Breast Cancer Screening 07/01/2015 06/30/2013 COVID-19 VACCINE ( season) 2023, 05/16/2020 Falls Risk Screening 03/02/2024 Influenza Vaccine (Season Ended) 2024 12/12/19 20 Tobacco Cessation Counseling and Screening (12+) 05/23/2025 [...] MD LAB BLOOD ORDERABLES Final Res ult [facility] [address] [place] [address], [facility] [phone] from Last 3 Months Insurance MEDICARE [place] [address] [place] [address] Care Teams Case Monitor Relationship Specialty Start Date End Date Becky Clark [address] [facility] [address] [place] [address] PCP - General 01/19/23
== END 2024-08-16 23:59 | disposition home or self-care (01) ==
LOC: RT 09:26
PROVIDERS: PCP Nurse Practitioner Family; Visit Provider Nurse Practitioner
DX: I49.1 Atrial premature depolarization (principal); I49.3 Ventricular premature depolarization; I47.19 Other supraventricular tachycardia; I48.91 Unspecified atrial fibrillation; R00.1 Bradycardia, unspecified; R94.31 Abnormal electrocardiogram [ECG] [EKG]
CPT/HCPCS: 93270

== ENCOUNTER 2024-09-07 07:41 | Outpatient (CLI) | payer MEDICARE, OTHER, SELFPAY ==
--- OUTSIDE RECORDS SUMMARY | 2024-09-07 07:43 | XMS_ITS | Clinical Summary ---
Author Organization [employer] ([place], [place], [place], [place]) Address [address] [place] [address] Care Team Providers Care Shader And Toner Name Role Phone Becky Clark Primary Care Provider [phone] Allergies Active Allergy Reactions Criticality Noted Date [...] = 0.6 oz pur e alcohol) Occasionally Family and Community Support Answer Owen e Recorded Help with Day to Day Activities Not on file 03/13/2023 Feeling Lonely or Isolated Not on file 03/13 Educational Attainment Answer Date Bryan rded Speak language other than Sinhala at home Not on file 03/13/2023 Want help with school or training Not on file 03/13/2023 Substance Use Answer Date Recorded Used [...] Care Team (Late st Contact Info) Description 11/18/2024 9:30 AM EDT Office Visit [facility] [facility] [place] [address] [place] [address] Jacob Justin MD [address] [place] [address] Health Maintenance Due Date Last [...] 05/16/2020 Falls Risk Screening 03/02/2024 Influenza Vaccine (#1) 2024 12/12/2019 Tobacco Cessation Counseling and Screening (12+) 05/23/2025 05/23/2024 Respiratory Syncytial Virus (RSV) Adult or (1 - 1-dose 75+ series) 2027 Shingles Vaccine (Zoster) Completed 09/09/2017, Pneumococcal 50+ years Completed , 11/29/2018, 11/11/2017 Insurance MEDICARE PART A B Care Teams Shader And Toner Relationship Specialty Start Date End Date Becky Clark [address] [facility] [address] [address] PCP - General 01/19/23
--- OUTSIDE RECORDS SUMMARY | 2024-09-07 07:43 | XMS_ITS | Referral Summary ---
Author Organization [employer] ([place], [place], [place], [place]) Address [address] [place] [address] Care Team Providers Care Retail Receiving Clerk Name Role Phone Becky Clark Primary Care Provider [phone] Allergies Active Allergy Reactions Criticality Noted Date [...] Date Bryan rded Speak language other than Hungarian at home Not on file 03/13/2023 Want [...] Description 11/18/2024 9:30 AM EDT Office Visit [place] [facility] [place] [address] [facility] [facility] [address] [place] [address] Jacob Justin MD [address] [facility] [address] [place] [address] Insurance MEDICARE PART A B Care Teams Retail Receiving Clerk Relationship Specialty Start Date End Date ClarkBecky Cosme [address] [address] PCP - General 01/19/23
--- OUTSIDE RECORDS SUMMARY | 2024-09-07 07:44 | XMS_ITS | Data Portability ---
Author Organization [facility] Address [address] [place] [address] Assessment Encounter Date Assessment Date Assessment LastModified by Organization Details LastModified Time 03/13/2023 03/13/2023 Patient is a pleasant 72-year-old female who presents today for bilateral intra-articular knee injections. We are currently treating the patient for bilateral knee pain/osteoarthrit is. Patient is a patient out of our [place] office however is just coming to the [place] location for the injections today. Patient rates her [...] Patient will follow-up in office at the [facility] in 2 weeks for reevaluation of symptoms and plan of care. Patient has been instructed to contact the clinic with any concerns before the next appointment. Dr. Tejeda has reviewed this note and agrees with this plan of care. This note was dictated using voice recognition software and may contain errors or omissions. [email or web address] Not available 03/13/2023 12:18:33 Plan of Treatment [...] Details Recorded Time Bilateral arthritis of knees 20305455943452 08 Active 2023 Becky Clark, EMULSIFICATION OPERATOR [address] [facility],[address], [address], [place] - [facility] 4 12:18:45 Pain of bilateral knee joints 71473054693771 4 Active 2023 Becky Clark, EMULSIFICATION OPERATOR [address] [facility],[place] [address], [place], [address], [place] [facility] 4 12:18:53 Problem Notes None recorded. Procedures Surgical History Date Name Laterality Status Provider Name and Address Organization Details Recorded Time Knee Joint Injection completed Becky Clark, EMULSIFICATION OPERATOR [address] [facility],[address], [address], [place] [facility] 03/13/2023 [...] Social History Question Answer Notes LastModified by [employer] Details LastModified Time Tobacco Smoking Status Never Smoker Jess Lindquist tobi, [place] - [facility] 03/13/2023 12:26:08 Do You Have An Advance Directive? 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 Yes [email or web address] Information not available 03/13/2023 Sex: Unknown Functional Status Question Answer Note LastModified by [employer] Details LastModified Time Do you use any illicit or recreational drugs? No [email or web address] Information not available 03/13/2023 What is your level of alcohol consumption? Occasional Information not available 03/13/2023 Are you currently employed? Yes [email or web address] Information not available 03/13/2023 Mental Status None recorded. Family History Nothing Reported. 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 Condition Response Coronary Artery Disease N Gout N Hernia N Head Trauma/Injury N Thyroid Problems N Depression N COPD N Anemia N Ulcers N Heart Attack (ND) N Anxiety Disorder N Diabetes N Bleeding [...] SNOMED-CT Code Diagnosis ICD10 Code Diagnosis Note [id number] Becky Clark NP [address] [place] [address] 03/13/2023 12:12:26 03/13/2023 12:56:20 Knee pain 08731425 M25.569 Bilateral arthritis of knees 4758200715 252216 M13.861 Pain of bi lateral knee joints 3066238063 82818 M25.561 Health Concerns Section Related Observation LastModified by Organization Detai ls LastModified Time None Recorded Concern Status LastModified by Organization Details LastModified Time None Recorded Advance Directives Directive Y: Payers Insurance Date Sequence Insurance Name Policy Number Policy Carson Covered Member ID Carson Member ID Guarantor Name 08/16/2024 1 [employer] (MEDICARE REPLACEMENT/ ADVANTAGE - HMO) Jayda Iraheta [id number] Jayda Iraheta 08/16/2024 1 [place] Jayda Iraheta [id number] Jayda Iraheta 08/16/2024 2 [employer] (MEDICARE SUPPLEMENT) Jayda Iraheta [id number] Jayda Iraheta OBGyn Episode No OBEpisode recorded.
--- OUTSIDE RECORDS SUMMARY | 2024-09-07 07:44 | XMS_ITS | Data Portability ---
Author Organization [facility] ADMIN Address [address] [place] [address] Assessment No assessment recorded. Plan of Treatment [...] By Organization Details Last Modified Time 04/16/2022 [id number] 1-Discussed findings with Ms. Iraheta and Dr. Key Rubio MD. 2-F/u with Dr. Rubio this date. 3-F/u hearing testing as directed. [email or web address] Not available 04/16/2022 13:58:14 Reason for Referral [...] Organization Details Recorded Time Abnormal auditory perception 44273980 Active 023 TANISHA HUI, AUD [address] , [place], [address] , [facility] & [place] 13:57:52 Problem Notes None recorded. Procedures Surgical History Date Name Laterality Status Provider Name and Address Organization Details Recorded Time Hysterectomy completed Brenda Mer [facility] & [place] 04/16/2022 13:24:39 procedure on back completed Brenda Mer [place] [facility] & [place] 04/16/2022 13:24:51 Imaging Results None recorded. Procedure Notes None recorded. Medical Equipment None Reported. Allergies Allergen ID Allergen Name Allergen Category Reaction Reaction Severity Criticality Documentation Date Start Date Code Code System Note Provider Name and Address Organization Details Recorded Time 60903 Cipro medicatio n rash Not available [facility] 04/16/2022 77584 3 RxNorm Brenda [facility] [place] 3 13:19:52 Medications Name Sig Start Date [...] Body weight Body temperature Heart rate Systolic And Diastolic Provider Name and Address Organization Details Last Updated DateTime 3 165.1 cm 32.9 kg/m2 95799.2 9 g 99 [degF] 83 /min 114/65 mm[Hg] Brenda PICKENS [facility] & [place] 3 13:19:28 Social History None recorded. Functional Status None recorded. Mental Status None recorded. Family History Nothing Reported. 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 Condition Response Allergies/Hayfever N Heart Problems N None N Heart Conditions N Emphysema N Migraines N Thyroid Problems N Developmental Delay N Depression N Glaucoma N Anemia N Immune System Disorder N Anesthesia Complications N Heart Attack (ME) N Anxiety Disorder N Diabetes N Bleeding [...] SNOMED-CT Code Diagnosis ICD10 Code Diagnosis Note [id number] Key Rubio MD [facility] [place] [address] [place] [id number] 04/16/2022 13:13:31 04/16/2022 13:58:27 Dizziness and giddiness 336827128 R42 [place] Hallpike negative in the office today. I suspect PT aligned her crystals. Encouraged her to start Cawthorne exercises should the dizziness return. I do not see any fluid in either ear. Will get audiogram in office today for baseline. I will see her back as needed. [id number] LEE PAZ [facility] [place] [address] [address] [place] [address] 04/16/2022 13:51:14 04/16/2022 13:56:20 Abnormal auditory perception 47876627 H93.299 Health Concerns Section Related Observation LastModified by Organization Detai ls LastModified Time None Recorded Concern Status LastModified by Organization Details LastModified Time None Recorded Advance Directives Directive None Recorded Payers Insurance Date Sequence Insurance Name Policy Number Policy Carson Covered Member ID Carson Member ID Guarantor Name 05/01/2022 1 [employer] (MEDICARE REPLACEMENT/ ADVANTAGE - HMO) Jayda Iraheta [id number] Jayda Iraheta 04/16/2022 1 [place] Jayda Iraheta [id number] Jayda Iraheta 04/24/2022 1 [employer] Jayda Iraheta [id number] Jayda Iraheta Notes Date Note Type Note [...] infection. Key Rubio MD [address], [place], [address], [facility] & [place] 04/28/2022 11:48:49 04/16/2022 text/html Ms. Iraheta was seen today for an audiologic evaluation due to concerns about hearing decline per Dr. Key Rubio MD. Ms. Iraheta denies any significant communication disruptions. She also denies tinnitus, dizziness, drainage, aural fullness/pressure, and excessive noise exposure. Otoscopic inspection was unremarkable bilaterally. TANISHA HUI, LEE [address], [place], [address], [facility] & [place] 04/16/2022 13:58:26 OBGyn Episode No OBEpisode recorded.
--- OUTSIDE RECORDS SUMMARY | 2024-09-07 07:44 | XMS_ITS ---
Laboratory report Created on: August 23, 2024 GILBERTO MCELROY : 1950 Sex: Female Author Organization Unknown PROBLEMS Problems List Code Description RESULTS Laboratory Orders Date Order Code Test 2024-08-10 248249 DISACCHARIDASE D ETER. W/INTERP Laboratory Results Date LOINC Test Value Unit Reference Range Interpre tation 2024-08-10 1942-2 LACTASE .65 UMOL/MIN/G PROT >/= 14.0 A 2024-08-10 1815-0 MALTASE 92.84 UMOL/MIN/G PROT >/= 110.0 A 2024-08-10 18886-7 PALATINASE 3.92 UMOL/MIN/G PROT >/= 8.5 A 2024-08-10 71358-2 SUCRASE 12.2 UMOL/MIN/G PROT >/= 25.0 A 2024-08-10 95928-8 INTERPRETATION NOTES 2024-08-10 41369-1 DISCLAIMER NOTES 2024-08-10 94201-3 REFERENCE NOTES
[2024-09-07] MEDS: ALBUTEROL 0.083% 2.5 MG/3 ML NEB IH (08:44)
== END 2024-09-07 23:59 | disposition home or self-care (01) ==
LOC: RT 07:42
PROVIDERS: PCP Nurse Practitioner Family; Visit Provider Nurse Practitioner Family
DX: Z01.811 Encounter for preprocedural respiratory examination (principal); R00.2 Palpitations; R06.02 Shortness of breath
CPT/HCPCS: 94010

== ENCOUNTER 2024-09-14 08:22 | Outpatient (CLI) | payer MEDICARE, OTHER, SELFPAY ==
--- OUTSIDE RECORDS SUMMARY | 2024-09-14 08:26 | XMS_ITS | Clinical Summary ---
Author Organization [employer] ([place], [place], [place], [place]) Address [address] [place] [address] Care Team Providers Care Manufacturing Design Engineer Name Role Phone Becky Clark Primary Care Provider [phone] Allergies Active Allergy Reactions Criticality Noted Date [...] Date Bryan rded Speak language other than Malagasy at home Not on file 03/13/2023 Want [...] Description 11/18/2024 9:30 AM EDT Office Visit [facility] [address] [place] [address] Jacob Justin MD [address] [place] [address] Health Maintenance Due Date Last [...] Insurance MEDICARE PART A B Care Teams Manufacturing Design Engineer Relationship Specialty Start Date End Date Becky Clark [address] [facility] [address] [address] PCP - General 01/19/23
--- OUTSIDE RECORDS SUMMARY | 2024-09-14 08:26 | XMS_ITS | Data Portability ---
Author Organization [facility] & [facility] ADMIN Address [address] [place] [address] Assessment No assessment recorded. Plan of Treatment [...] By Organization Details Last Modified Time 04/16/2022 [id number] 1-Discussed findings with Ms. Iraheta and Dr. Key Rubio MD. 2-F/u with Dr. Rubio this date. 3-F/u hearing testing as directed. [email or web address] Not available 04/16/2022 13:58:14 Reason for Referral [...] Organization Details Recorded Time Abnormal auditory perception 88062754 Active 023 TANISHA HUI, AUD [address] , [place], [address] , [facility] & [place] 13:57:52 Problem Notes None recorded. Procedures Surgical History Date Name Laterality Status Provider Name and Address Organization Details Recorded Time Hysterectomy completed Brenda Mer [facility] & [place] 04/16/2022 13:24:39 procedure on back completed Brenda Mer [place] [facility] & [place] 04/16/2022 13:24:51 Imaging Results None recorded. Procedure Notes None recorded. Medical Equipment None Reported. Allergies Allergen ID Allergen Name Allergen Category Reaction Reaction Severity Criticality Documentation Date Start Date Code Code System Note Provider Name and Address Organization Details Recorded Time 17361 Cipro medicatio n rash Not available [facility] 04/16/2022 52127 3 RxNorm Brenda Del Angel [facility] & [place] 3 13:19:52 Medications Name Sig Start Date [...] Updated DateTime 3 165.1 cm 32.9 kg/m2 91690.2 9 g 99 [degF] 83 /min 114/65 mm[Hg] Brenda PICKENS [facility] & [place] 3 13:19:28 Social History None recorded. Functional Status None recorded. Mental Status None recorded. Family History Nothing Reported. 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 Condition Response Allergies/Hayfever N Heart Problems N None N Heart Conditions N Emphysema N Migraines N Thyroid Problems N Developmental Delay N Depression N Glaucoma N Anemia N Immune System Disorder N Anesthesia Complications N Heart Attack ([place]) N Anxiety Disorder N Diabetes N Bleeding [...] SNOMED-CT Code Diagnosis ICD10 Code Diagnosis Note [id number] Key Rubio MD [facility] [place] [address] [place] [id number] 04/16/2022 13:13:31 04/16/2022 13:58:27 Dizziness and giddiness 563398578 R42 Margi Hallpike negative in the office today. I suspect PT aligned her crystals. Encouraged her to start Cawthorne exercises should the dizziness return. I do not see any fluid in either ear. Will get audiogram in office today for baseline. I will see her back as needed. [id number] LEE PAZ [facility] [place] [address] [address] [place] [address] 04/16/2022 13:51:14 04/16/2022 13:56:20 Abnormal auditory perception 36925805 H93.299 Health Concerns Section Related Observation LastModified by Organization Detai ls LastModified Time None Recorded Concern Status LastModified by Organization Details LastModified Time None Recorded Advance Directives Directive None Recorded Payers Insurance Date Sequence Insurance Name Policy Number Policy Carson Covered Member ID Carson Member ID Guarantor Name 05/01/2022 1 [employer] (MEDICARE REPLACEMENT/ ADVANTAGE - HMO) Jayda Iraheta [id number] Jayda Iraheta 04/16/2022 1 [place] Jayda Iraheta [id number] Jayda Iraheta 04/24/2022 1 [employer] Jayda Iraheta [id number] Jayda Iraheta Notes Date Note Type Note [...] infection. Key Rubio MD [address], [place], [address], [facility] & [place] 04/28/2022 11:48:49 04/16/2022 text/html Ms. Iraheta was seen today for an audiologic evaluation due to concerns about hearing decline per Dr. Key Rubio MD. Ms. Iraheta denies any significant communication disruptions. She also denies tinnitus, dizziness, drainage, aural fullness/pressure, and excessive noise exposure. Otoscopic inspection was unremarkable bilaterally. TANISHA HUI, LEE [address], [place], [address], [facility] & [place] 04/16/2022 13:58:26 OBGyn Episode No OBEpisode recorded.
--- OUTSIDE RECORDS SUMMARY | 2024-09-14 08:26 | XMS_ITS | Referral Summary ---
Author Organization [employer] ([place], [place], [place], [place]) Address [address] [place] [address] Care Team Providers Care Human Resource Adviser Name Role Phone Becky Clark Primary Care Provider Allergies Active Allergy Reactions Criticality Noted Date [...] Date Bryan rded Speak language other than Canadian at home Not on file 03/13/2023 Want [...] Description 11/18/2024 9:30 AM EDT Office Visit [facility] [place] [address] [place] [address] Jacob Justin MD [address] [facility] [place] [address] Insurance MEDICARE PART A B Care Teams Human Resource Adviser Relationship Specialty Start Date End Date ClarkBecky Cosme [address] [address] PCP - General 01/19/23
--- NOTE | 2024-09-14 08:29 | XR_ITS ---
FINAL REPORT TECHNIQUE: 5 views CLINICAL HISTORY: recent fall, lbp FINDINGS: There is no acute fracture present. There is no malalignment. Post kyphoplasty changes are seen with a moderate T12 compression deformity. There is moderate, diffuse degenerative disc disease with advanced facet arthropathy. IMPRESSION: Chronic changes as above without acute bony abnormality. Reviewed, Interpreted and Dictated by Nay Min MD Transcribed by Sanjuanita Patton Authenticated and [facility]
--- NOTE | 2024-09-14 08:29 | XR_ITS ---
FINAL REPORT CLINICAL HISTORY: recent fall FINDINGS: LEFT HIP 3 views of the left hip are obtained. There is no acute fracture or dislocation. There are advanced degenerative changes at the pubic symphyseal region. Visualized joint spaces are normally aligned. There is no acute soft tissue abnormality. IMPRESSION: No acute bony abnormality. Reviewed, Interpreted and Dictated by Nay Min MD Transcribed by Sanjuanita Patton Authenticated and [facility]
== END 2024-09-14 23:59 | disposition home or self-care (01) ==
LOC: RAD 08:24
PROVIDERS: PCP Nurse Practitioner Family; Visit Provider Nurse Practitioner Family
DX: M47.816 Spondylosis without myelopathy or radiculopathy, lumbar region (principal); M25.552 Pain in left hip; W19.XXXA Unspecified fall, initial encounter
CPT/HCPCS: 72110; 73502

== ENCOUNTER 2024-09-19 09:29 | Outpatient (POV) | payer MEDICARE, OTHER, SELFPAY ==
--- OUTSIDE RECORDS SUMMARY | 2024-09-19 09:35 | XMS_ITS | Data Portability ---
Author Organization [facility] & [facility] ADMIN Address [address] [place] [address] Assessment No assessment recorded. Plan of Treatment [...] By Organization Details Last Modified Time 04/16/2022 [id number] 1-Discussed findings with Ms. Iraheta and Dr. Key Rubio MD. 2-F/u with Dr. Rubio this date. 3-F/u hearing testing as directed. [email or web address] Not available 04/16/2022 13:58:14 Reason for Referral [...] Organization Details Recorded Time Abnormal auditory perception 06669211 Active 023 TANISHA HUI, AUD [address] , [place], [address] , [facility] & [place] 13:57:52 Problem Notes None recorded. Procedures Surgical History Date Name Laterality Status Provider Name and Address Organization Details Recorded Time Hysterectomy completed Brenda Mer [facility] & [place] 04/16/2022 13:24:39 procedure on back completed Brenda Mer [place] [facility] & [place] 04/16/2022 13:24:51 Imaging Results None recorded. Procedure Notes None recorded. Medical Equipment None Reported. Allergies Allergen ID Allergen Name Allergen Category Reaction Reaction Severity Criticality Documentation Date Start Date Code Code System Note Provider Name and Address Organization Details Recorded Time 96640 Cipro medicatio n rash Not available high 04/16/2022 14161 3 [facility]Norm [facility] [place] 3 13:19:52 Medications Name Sig Start Date [...] Updated DateTime 3 165.1 cm 32.9 kg/m2 67431.2 9 g 99 [degF] 83 /min 114/65 mm[Hg] Brenda PICKENS [facility] & [place] 3 13:19:28 Social History None recorded. Functional Status None recorded. Mental Status None recorded. Family History Nothing Reported. 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 Condition Response None N Emphysema N Depression N Glaucoma N Anesthesia Complications N Anxiety Disorder N Arthritis N Hearing Loss N Acid Reflux (GERD) Y Cancer N Stroke N Fibromyalgia N Headaches N Speech Delay N Kidney Disease N Allergies/Hayfever N Heart Problems N Heart Conditions N Migraines N Thyroid Problems N Developmental Delay N Anemia N Immune System Disorder N Heart Attack ([place]) N Diabetes N Bleeding Disorder N Tuberculosis N Hyperlipidemia N Asthma N Sleep Disorder N GERD/Reflux N Heart Disease N Hypertension Y Gynecological HistoryNo gynecological history recorded. Obstetrics History GPAL:G 0 P 0 0 0 0 Past Encounters Encounter ID Performer Location Encounter Start Date Encounter Closed Date Diagnosis/Indication Diagnosis SNOMED-CT Code Diagnosis ICD10 Code Diagnosis Note [id number] Key Rubio MD [facility] [place] [address] [place] [id number] 04/16/2022 13:13:31 04/16/2022 13:58:27 Dizziness and giddiness [id number] R42 Margi Hallpike negative in the office today. I suspect PT aligned her crystals. Encouraged her to start Cawthorne exercises should the dizziness return. I do not see any fluid in either ear. Will get audiogram in office today for baseline. I will see her back as needed. [id number] LEE PAZ [facility] [place] [address] [place] [id number] 04/16/2022 13:51:14 04/16/2022 13:56:20 Abnormal auditory perception 87648499 H93.299 Health Concerns Section Related Observation LastModified by Organization Detai ls LastModified Time None Recorded Concern Status LastModified by Organization Details LastModified Time None Recorded Advance Directives Directive None Recorded Payers Insurance Date Sequence Insurance Name Policy Number Policy Carson Covered Member ID Carson Member ID Guarantor Name 05/01/2022 1 [employer] (MEDICARE REPLACEMENT/ ADVANTAGE - HMO) Jayda Iraheta [id number] Jayda Iraheta 04/16/2022 1 [place] Jayda Iraheta [id number] Jayda Iraheta 04/24/2022 1 [employer] Jayda Iraheta [id number] Jayda Iraheta Notes Date Note Type Note [...] infection. Key Rubio MD [address], [place], [address], [facility] & [place] 04/28/2022 11:48:49 04/16/2022 text/html Ms. Iraheta was seen today for an audiologic evaluation due to concerns about hearing decline per Dr. Key Rubio MD. Ms. Iraheta denies any significant communication disruptions. She also denies tinnitus, dizziness, drainage, aural fullness/pressure, and excessive noise exposure. Otoscopic inspection was unremarkable bilaterally. TANISHA HUI, LEE [address], [place], [address], [facility] & [place] 04/16/2022 13:58:26 OBGyn Episode No OBEpisode recorded.
--- OUTSIDE RECORDS SUMMARY | 2024-09-19 09:35 | XMS_ITS | Data Portability ---
Author Organization [facility] Address [address] [place] [address] Assessment Encounter Date Assessment Date Assessment LastModified by Organization Details LastModified Time 03/13/2023 03/13/2023 Patient is a pleasant 72-year-old female who presents today for bilateral intra-articular knee injections. We are currently treating the patient for bilateral knee pain/osteoarthrit is. Patient is a patient out of our [place] office however is just coming to the [place] location for the injections today. Patient rates [...] Patient will follow-up in office at the [facility] [place] 2 weeks for reevaluation of symptoms and plan of care. Patient has been instructed to contact the clinic with any concerns before the next appointment. Dr. Tejeda has reviewed this note and agrees with this plan of care. This note was dictated using voice recognition software and may contain errors or omissions. [email or web address] Not available 03/13/2023 12:18:33 Plan of Treatment [...] Details Recorded Time Bilateral arthritis of knees [id number] 08 Active 2023 Becky Clark, ACTIVITY LEADER [address] [facility],[address], [address], [place] - [facility] 4 12:18:45 Pain of bilateral knee joints 40239792227756 4 Active 2023 Becky Clark, ACTIVITY LEADER [address] [facility],[place] [address], [place], [address], [place] [facility] 4 12:18:53 Problem Notes None recorded. Procedures Surgical History Date Name Laterality Status Provider Name and Address Organization Details Recorded Time Knee Joint Injection completed Becky Clark, ACTIVITY LEADER [address] [facility],[address], [address], [place] [facility] 03/13/2023 [...] Social History Question Answer Notes LastModified by [employer] Details LastModified Time Tobacco Smoking Status Never Smoker Jess Lindquist tobi, [place] - [facility] 03/13/2023 12:26:08 Do You Have An Advance Directive? Yes Information not available 03/13/2023 Do You Have A Medical Power Of Router Operator? Yes [email or web address] Information not available 03/13/2023 Sex: Unknown Functional Status Question Answer Note LastModified by [employer] Details LastModified Time Do you use any illicit or recreational drugs? No [email or web address] Information not available 03/13/2023 What is your level of alcohol consumption? Occasional [email or web address] Information not available 03/13/2023 Are you currently employed? Yes [email or web address] Information not available 03/13/2023 Mental Status None recorded. Family History Nothing Reported. 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 Condition Response Coronary Artery Disease N Gout N Hernia N Head Trauma/Injury N Thyroid Problems N Depression N COPD N Anemia N Heart Attack ([place]) N Ulcers N Diabetes N Anxiety Disorder N Bleeding Disorder N Arthritis N Tuberculosis [...] SNOMED-CT Code Diagnosis ICD10 Code Diagnosis Note [id number] Becky Clark NP [address] [place] [address] 03/13/2023 12:12:26 03/13/2023 12:56:20 Knee pain 69419562 M25.569 Bilateral arthritis of knees 5439940976 435921 M13.861 Pain of bi lateral knee joints 1622711415 05250 M25.561 Health Concerns Section Related Observation LastModified by Organization Detai ls LastModified Time None Recorded Concern Status LastModified by Organization Details LastModified Time None Recorded Advance Directives Directive Y: Payers Insurance Date Sequence Insurance Name Policy Number Policy Carson Covered Member ID Carson Member ID Guarantor Name 08/16/2024 1 [employer] (MEDICARE REPLACEMENT/ ADVANTAGE - HMO) Jayda Iraheta [id number] Jayda Iraheta 08/16/2024 1 [place] Jayda Iraheta [id number] Jayda Iraheta 08/16/2024 2 [employer] (MEDICARE SUPPLEMENT) Jayda Iraheta [id number] Jayda Iraheta OBGyn Episode No OBEpisode recorded.
--- OUTSIDE RECORDS SUMMARY | 2024-09-19 09:35 | XMS_ITS | Clinical Summary ---
Author Organization [facility] ystem Address [address] [place] [address] Care Team Providers Care Wringer And Setter Name Role Phone Unavailable Primary Care Provider Unavailabl e Social History Tobacco Use Types Packs/Day Years Used Date Smoking Tobacco: Never Assessed Abuse Screen Answer Date Recorded Unsafe at Home or Work/School Not on file Feels Threatened by Someone? Not on file 10/2022 Does Anyone Keep You from Co ntacting Others or Doint Things Outside the Home? Not on file 12/08/2022 Physical Sign of Abuse Present Not on file 1 Housing Stability Answer Date Recorded Current Living Arrangements Not on file 10/2022 Potentially Unsafe Housing Conditions Not on bradly e 12/08/2022 Family and Community Support Answer Owen e Recorded Help with Day-to-Day Activities Not on file 12/08/2022 Lonely or Isolated Not on file 12/08/2022 Employment Answer Date Recorded Do you want help finding or keeping work or a giuseppe b? Not on file 12/08/2022 Disabilities Answer Date Recorded Concentrating, Remembering, or Making Decisions Difficulty Not on file 12/08/2022 Doing Errands Independently Difficulty Not on fi le 12/08/2022 Education Answer Date Recorded Help with school or training? Not on file Preferred Language Not on file 12/08/2022 Comments Unknown Sex and Gender Information Value Date Recorded Sex Assigned at Not on file Legal Sex Female 12:22 PM EDT Gender Identity Not on file Sexual Orientation Not on file Plan of Treatment Health Maintenance Due Date Last Done Comments ANNUAL PHYSICAL 1950 HEPATITIS C SCREENING 1950 TDAP/TD VACCINES (1 - Tdap) 1971 COLOGUARD 1997 COLON CANCER SCREENING [address] COLONOGRAPHY 1997 FECAL OCCULT BLOOD TEST 1997 FIT Testing (1 year) 1997 Pneumococcal Vaccine 50+ (1 of 1 - PCV) 2002 ZOSTER VACCINE (1 of 2) 2002 DXA SCAN 07/01/2015 06/30/2013 MAMMOGRAM 07/01/2015 06/30/2013 COVID-19 Vaccine (1 - 2023- season) 2023 INFLUENZA VACCINE 11/30/2024 COLONOSCOPY 07/21/2026 07/21/2016 COLORECTAL CANCER SCREENING 07/21/2026 Procedures Procedure Name Priority Date/Time Associated Diagnosis Comments SCANNED - COLONOSCOPY 07/21/2016 DEXA BONE DENSITY AXIAL Routine 06/30/2013 8:27 AM EDT MAMMO SCREENING BILATERAL W CAD Routine 06/30/2013 8:27 AM EDT from Last 3 Months or Most Recently Relevant to Health Maintenance Results * SCANNED - COLONOSCOPY (07/21/2016) Brooks Mayberry MD CHART REVIEW TABS Final Resul t * DEXA BONE DENSITY AXIAL (06/30/2013 8:27 AM EDT) Anatomical Region Laterality Modality Wrist, Hip, L-spine N/A Radiographic Imaging 06/30/2013 8:27 AM EDT Narrative 07/01/2013 4:09 PM EDT BONE DENSITOMETRY: HISTORY: 63-year-old patient who is currently on vitamin D supplementation, but is not taking calcium. COMPARISON: 08/28/2009 and 10/29/2004 EXAM: The bone densitometry was evaluated by determining the bone mineral density (BMD) of the first four lumbar vertebral bodies and at 4 sites in the left femur . The World Health Organization ten year fracture risk assessment (FRAX) was then calculated based on the patient's bone mineral density and specific International Society of Clinical Densitometry (ISCD) qualifiers, as provided by the patient's personal risk history (attached). The T value compares the patient's BMD with the peak BMD of young normal patients. Postmenopausal patients with T values between 1 and 2.5 standard deviations below the mean are osteopenic. Patients with T values greater than 2.5 standard deviations below the mean are osteoporotic. The Z score compares the patient:s BMD with age and sex matched peers. Premenopausal patients with Z scores below 2.0 have lower than expected bone mineral density. The average bone mineral density in the lumbar spine is 0.800 grams per square cm. This represents a T value of -2.2 and a Z score of -0.7. The average bone mineral density of the left hip is 0.778 grams per square cm. The average T value is -1.3. The Z score is -0.3. The T value of the femoral neck is -1.9. IMPRESSION- The BMD fufills the WHO classification for low bone mass or osteopenia. There has been a statistically significant decrease in the bone mineral density of the lumbar spine of 3.6% compared to the prior 2009 exam. No significant change is identified in the left hip. The ten year fracture risk assessment is calculated at 27 % for a major osteoporotic fracture and 2.1 % for a hip fracture. The World Health Organization recommends considering pharmacologic treatment in patients with a greater than 20% risk of major fracture or a greater than 3% risk of hip fracture. FOLLOWUP: Consider repeating the study in 2-3 years to reassess the patient's status or sooner if there is some new clinical indication. Criminal Justice Instructor- MICHEL SUGGS Reading Radiologist- MICHEL SUGGS Releasing Radiologist- MICHEL SUGGS Released Date Time- 07/01/13 1610 Norma OG Lucila DXA ORDERABLES Final R esult * MAMMOGRAPHY SCREENING BILATERAL (06/30/2013 8:27 AM EDT) Anatomical Region Laterality Modality Breast Bilateral Mammography 06/30/2013 8:27 AM EDT Narrative 06/30/2013 10:20 AM EDT BILATERAL DIGITAL SCREENING MAMMOGRAM WITH TOMOSYNTHESIS: HISTORY: 63-year-old female with a remote family history of breast cancer. Routine screening. IMAGE COMPARISON: Prior exams most recently dated 11/12/2010. TECHNIQUE: Low dose full field digital breast tomosynthesis examination was performed with 2-D and 3-D acquisitions. FINDINGS: There are scattered areas of fibroglandular density. Intramammary lymph nodes are present. There is no focal suspicious mass, group of calcifications or architectural distortion to suggest malignancy. ASSESSMENT: BI-RADS CATEGORY II, BENIGN. MANAGEMENT: Routine screening. The standard false-negative rate of mammography is between 10% and 25%. Complex patterns or increased breast density will markedly elevate the false-negative rate of mammography. iCAD was utilized. A letter, in lay terminology, with the results of this exam will be mailed to the patient. Criminal Justice Instructor- EMILIA Gill Radiologist- MELE MARQUIS Releasing Radiologist- MELE MARQUIS Released Date Time- 07/01/13 1029 Norma OG [facility] MAMMOGRAPHY ORDERABLES Final Result from Last 3 Months or Most Recently Relevant to Health Maintenance
--- OUTSIDE RECORDS SUMMARY | 2024-09-19 09:35 | XMS_ITS | Referral Summary ---
Author Organization [facility] [facility] ([place], [place], [place], [place]) Address [address] [place] [address] Care Team Providers Care Crocheter Hand Name Role Phone Becky Clark Primary Care Provider [phone] Allergies Active Allergy Reactions Criticality Noted Date [...] Date Bryan rded Speak language other than Vincentian at home Not on file 03/13/2023 Want [...] Description 11/18/2024 9:30 AM EDT Office Visit [facility] [place] [address] [facility] [address] [place] [address] Jacob Justin MD [address] [facility] [address] [place] [address] Insurance MEDICARE PART A B Care Teams Crocheter Hand Relationship Specialty Start Date End Date ClarkBecky Cosme [address] [address] PCP - General 01/19/23
--- OUTSIDE RECORDS SUMMARY | 2024-09-19 09:35 | XMS_ITS | Clinical Summary ---
Author Organization [employer] ([place], [place], [place], [place]) Address [address] [place] [address] Care Team Providers Care Live In Housekeeper Name Role Phone Becky Clark Primary Care [...] Date Bryan rded Speak language other than Colombian at home Not on file 03/13/2023 Want [...] Description 11/18/2024 9:30 AM EDT Office Visit [facility] [place] [address] [place] [address] Jacob Justin MD [address] [place] [address] Health Maintenance Due Date Last [...] 11/29/2018, 11/11/2017 [place] [address] Care Teams Live In Housekeeper Relationship Specialty Start Date End Date Becky Clark [address] [facility] [address] [address] PCP - General 01/19/23
[2024-09-19 09:38] VITALS: BP 120/52; PULSE 60; RESP 16; O2SAT 96; BMI 31.7
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
--- NOTE | 2024-09-19 09:55 | XR_ITS ---
FINAL REPORT CLINICAL HISTORY: Pelvic pain fall last week, pain anterior pelvic region and posterior upper pelvic area COMPARISON: 08/21/2017 FINDINGS: AP PELVIS 3 views were obtained. There is no acute fracture or dislocation. There is sclerosis and irregularity of the pubic symphyseal region which has progressed from prior exam. Mild degenerative changes are seen of the bilateral hips and SI joints. Visualized joint spaces are normally aligned. Soft tissues are unremarkable. IMPRESSION: No acute bony abnormality. 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 Reviewed, Interpreted and Dictated by Nay Min MD Transcribed by Sanjuanita Patton Authenticated and [facility]
== END 2024-09-19 23:59 | disposition home or self-care (01) ==
PROVIDERS: PCP Nurse Practitioner Family; Visit Provider Nurse Practitioner Family
DX: R10.2 Pelvic and perineal pain (principal); M54.50 Low back pain, unspecified; M25.552 Pain in left hip; W19.XXXA Unspecified fall, initial encounter; Y93.9 Activity, unspecified; Y92.9 Unspecified place or not applicable; Z98.890 Other specified postprocedural states
CPT/HCPCS: 72190; 99212; G0463

== ENCOUNTER 2024-09-22 15:05 | Outpatient (CLI) | payer MEDICARE, OTHER, SELFPAY ==
--- NOTE | 2024-09-22 15:08 | MR_ITS ---
FINAL REPORT TECHNIQUE: Multiplanar MR, without and with gadolinium enhancement CLINICAL HISTORY: LBP/ACUTE FALL COMPARISON: None FINDINGS: There is a chronic compression fracture of T12 with post kyphoplasty change. Mild chronic superior endplate compression fracture of L3 is noted. There is a small hemangioma within the posterior L4 vertebral body. Diffuse diminished signal throughout the marrow which can be seen with red marrow predominance, marrow infiltrate from neoplasm such as lymphoproliferative disorder, myeloma, or metastases. No discrete enhancing mass is seen. L1-2: Minimal annular disc bulge without canal stenosis. L2-3: Mild annular disc bulge without canal stenosis. L3-4: Mild annular disc bulge without canal stenosis. L4-5: Moderate annular disc bulge and facet arthropathy. Mild central canal stenosis. L5-S1: Gclv-pi-yxzuhowt annular disc bulge. Borderline central canal stenosis. Mild neural foraminal narrowing. IMPRESSION: Moderate degenerative changes without high-grade canal stenosis. Chronic compression fractures as above without acute process. Abnormal appearance of the marrow, neoplastic disease not excluded. Recommend further investigation with laboratory and other imaging test. Reviewed, Interpreted and Dictated by Nay Min MD Transcribed by Kathryn Lopez Authenticated and [facility]
--- OUTSIDE RECORDS SUMMARY | 2024-09-22 15:09 | XMS_ITS | Data Portability ---
Author Organization [facility], [facility] Address [address] [place] [address] Assessment Encounter Date Assessment Date Assessment LastModified by Organization Details LastModified Time 03/13/2023 03/13/2023 Patient is a pleasant 72-year-old female who presents today for bilateral intra-articular knee injections. We are currently treating the patient for bilateral knee pain/osteoarthrit is. Patient is a patient out of our [place] office however is just coming to the [place] location for the injections today. Patient rates [...] Patient will follow-up in office at the [facility] in 2 weeks for reevaluation of symptoms and plan of care. Patient has been instructed to contact the clinic with any concerns before the next appointment. Dr. Tejeda has reviewed this note and agrees with this plan of care. This note was dictated using voice recognition software and may contain errors or omissions. [email or web address] Not available 03/13/2023 12:18:33 Plan of Treatment [...] Details Recorded Time Bilateral arthritis of knees [id number] 08 Active 2023 Becky Clark, WOMENS VOLLEYBALL COACH [address] [facility],[address], [address], [place] - [facility] 4 12:18:45 Pain of bilateral knee joints 87467179625798 4 Active 2023 Becky Clark, WOMENS VOLLEYBALL COACH [address] [facility],[address] [address], [place], [address], [place] [facility] 4 12:18:53 Problem Notes None recorded. Procedures Surgical History Date Name Laterality Status Provider Name and Address Organization Details Recorded Time Knee Joint Injection completed Becky Clark, WOMENS V[employer]LEYBALL COACH [address] [facility],[address], [address], [place] - [facility] 03/13/2023 [...] Social History Question Answer Notes LastModified by [employer] Details LastModified Time Tobacco Smoking Status Never Smoker Jess Lindquist tobi, [place] - [facility] 03/13/2023 12:26:08 Do You Have An Advance Directive? Yes [email or web address] Information not available 03/13/2023 Do You Have A Medical Power Of Wire Winding Machine Tender? Yes [email or web address] Information not available 03/13/2023 Sex: Unknown Functional Status Question Answer Note LastModified by [employer] Details LastModified Time Do you use any illicit or recreational drugs? No [email or web address] Information not available 03/13/2023 What is your level of alcohol consumption? Occasional [email or web address] Information not available 03/13/2023 Are you currently employed? Yes [email or web address] Information not available 03/13/2023 Mental Status None recorded. Family History Nothing Reported. 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 Condition Response Coronary Artery Disease N Gout N Head Trauma/Injury N Hernia N Thyroid Problems N Depression N COPD N Anemia N Ulcers N Heart Attack ([place]) N Diabetes N Anxiety Disorder N Bleeding [...] SNOMED-CT Code Diagnosis ICD10 Code Diagnosis Note 56535 Becky Clark NP [address] [place] [address] 03/13/2023 12:12:26 03/13/2023 12:56:20 Knee pain 11187198 M25.569 Bilateral arthritis of knees 9242142155 332328 M13.861 Pain of bi lateral knee joints 6725133243 20978 M25.561 Health Concerns Section Related Observation LastModified by Organization Detai ls LastModified Time None Recorded Concern Status LastModified by Organization Details LastModified Time None Recorded Advance Directives Directive Y: Payers Insurance Date Sequence Insurance Name Policy Number Policy Carson Covered Member ID Carson Member ID Guarantor Name 08/16/2024 1 [employer] (MEDICARE REPLACEMENT/ ADVANTAGE - HMO) Jayda Iraheta [id number] Jayda Iraheta 08/16/2024 1 [place] Jayda Iraheta [id number] Jayda Iraheta 08/16/2024 2 [employer] (MEDICARE SUPPLEMENT) Jayda Iraheta [id number] Jayda Iraheta Notes Date Note Type Note Provider Name and Address Organization Details Recorded Time 03/13/2023 text/html KneeReported by Patient Becky Clark NP [address] [address], [place], [address], [place] [facility] 03/13/2023 12:32:51 OBGyn Episode No OBEpisode recorded.
--- OUTSIDE RECORDS SUMMARY | 2024-09-22 15:09 | XMS_ITS | Clinical Summary ---
Author Organization [employer] ([place], [place], [place], [place]) Address [address] [place] [address] Care Team Providers Care Licensed Physical Therapist Name Role Phone Becky Clark Primary Care Provider [phone] Allergies Active Allergy Reactions Criticality Noted Date [...] Description 11/18/2024 9:30 AM EDT Office Visit [facility] [address] [place] [address] Jacob Justin MD [address] [place] [address] Health Maintenance Due Date Last [...] Insurance MEDICARE PART A B Care Teams Licensed Physical Therapist Relationship Specialty Start Date End Date Becky Clark [address] [facility] [address] [address] PCP - General 01/19/23
--- OUTSIDE RECORDS SUMMARY | 2024-09-22 15:09 | XMS_ITS | Referral Summary ---
Author Organization [employer] ([place], [place], [place], [place]) Address [address] [place] [address] Care Team Providers Care Computer Applications Engineer Name Role Phone Becky Clark Primary Care Provider [phone] Allergies Active Allergy Reactions Criticality Noted Date [...] Date Bryan rded Speak language other than Japanese at home Not on file 03/13/2023 Want [...] Description 11/18/2024 9:30 AM EDT Office Visit [facility] - [place] [address] [place] [address] Jacob Justin MD [address] [facility] [place] [address] [place] [address] Insurance MEDICARE PART A B Care Teams Computer Applications Engineer Relationship Specialty Start Date End Date ClarkBecky Cosme [address] [address] PCP - General 01/19/23
--- OUTSIDE RECORDS SUMMARY | 2024-09-22 15:09 | XMS_ITS | Clinical Summary ---
Author Organization [facility] Address [address] [place] [address] Care Team Providers Care Bicycle Rental Clerk Name Role Phone Unavailable Primary Care Provider [...] if there is some new clinical indication. Harbor Master- MICHEL SUGGS Reading Radiologist- MICHEL SUGGS Releasing [...] exam will be mailed to the patient. Harbor Master- EMILIA Gill Radiologist- MELE MARQUIS Releasing Radiologist- MELE MARQUIS Released Date Time- 07/01/13 1029 Norma [facility] ORDERABLES Final Result from Last 3 Months or Most Recently Relevant to Health Maintenance
[2024-09-22 15:38] LABS: Blood Urea Nitrogen 16 mg/dl (7-17); Creatinine,Serum 0.60 mg/dl (0.52-1.04); Estimated Glomerular Filt Rate 98 ml/min (>60); GFR (African American) 119 ML/MIN (>60)
[2024-09-22] MEDS: GADOTERIDOL INJ 10ML SYRINGE 17 ML IV (16:08)
== END 2024-09-22 23:59 | disposition home or self-care (01) ==
LOC: RAD 15:06
PROVIDERS: PCP Nurse Practitioner Family; Visit Provider Nurse Practitioner Family
DX: M47.816 Spondylosis without myelopathy or radiculopathy, lumbar region (principal); S32.030A Wedge compression fracture of third lumbar vertebra, initial encounter for closed fracture; S22.080A Wedge compression fracture of T11-T12 vertebra, initial encounter for closed fracture; R93.7 Abnormal findings on diagnostic imaging of other parts of musculoskeletal system; W19.XXXA Unspecified fall, initial encounter
CPT/HCPCS: 36415; 72158; 82565; 84520; A9576

== ENCOUNTER 2024-09-23 08:06 | Outpatient (CLI) | payer MEDICARE, OTHER, SELFPAY ==
--- OUTSIDE RECORDS SUMMARY | 2024-09-23 08:08 | XMS_ITS | Referral Summary ---
Author Organization [employer] ([place], [place], [place], [place]) Address [address] [place] [address] Care Team Providers Care Boom Stick Man Name Role Phone Becky Clark Primary Care Provider [phone] Allergies Active Allergy Reactions Criticality Noted Date [...] Date Bryan rded Speak language other than Barbadian at home Not on file 03/13/2023 Want [...] Description 11/18/2024 9:30 AM EDT Office Visit [facility] - [address] [address] [place] [address] Jacob Justin MD [address] [facility] [place] [address] [place] [address] Insurance MEDICARE PART A B Care Teams Boom Stick Man Relationship Specialty Start Date End Date ClarkBecky Cosme [address] [address] PCP - General 01/19/23
--- OUTSIDE RECORDS SUMMARY | 2024-09-23 08:08 | XMS_ITS | Data Portability ---
Author Organization [facility] ADMIN Address [address] [place] [address] Assessment No assessment recorded. Plan of Treatment [...] By Organization Details Last Modified Time 04/16/2022 [id number] 1-Discussed findings with Ms. Iraheta and Dr. Key Rubio MD. 2-F/u with Dr. Rubio this date. 3-F/u hearing testing as directed. Not available 04/16/2022 13:58:14 Reason for Referral [...] Organization Details Recorded Time Abnormal auditory perception [id number] Active [address], [address] , [place], [address] , [facility] & [place] 13:57:52 Problem Notes None recorded. Procedures Surgical History Date Name Laterality Status Provider Name and Address Organization Details Recorded Time Hysterectomy completed Brenda Mer [facility] [place] 04/16/2022 13:24:39 procedure on back completed Brenda Mer [place] [facility] [place] 04/16/2022 13:24:51 Imaging Results None recorded. Procedure Notes None recorded. Medical Equipment None Reported. Allergies Allergen ID Allergen Name Allergen Category Reaction Reaction Severity Criticality Documentation Date Start Date Code Code System Note Provider Name and Address Organization Details Recorded Time 95984 Cipro medicatio n rash Not available [facility] 04/16/2022 76862 3 RxNorm Brenda Del Angel [facility] & [place] 3 13:19:52 Medications Name Sig Start Date [...] Updated DateTime 3 165.1 cm 32.9 kg/m2 56593.2 9 g 99 [degF] 83 /min 114/65 mm[Hg] Brenda PICKENS [facility] [place] 3 13:19:28 Social History None recorded. Functional Status None recorded. Mental Status None recorded. Family History Nothing Reported. 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 Condition Response Allergies/Hayfever N Heart Problems N None N Heart Conditions N Emphysema N Migraines N Thyroid Problems N Developmental Delay N Depression N Glaucoma N Anemia N Immune System Disorder N Anesthesia Complications N Heart Attack ([place]) N Anxiety Disorder N Diabetes N Bleeding [...] SNOMED-CT Code Diagnosis ICD10 Code Diagnosis Note [id number] Key Rubio MD [facility] [place] [address] [address] [id number] 04/16/2022 13:13:31 04/16/2022 13:58:27 Dizziness and giddiness 384796437 R42 Margi Hallpike negative in the office today. I suspect PT aligned her crystals. Encouraged her to start C[place]thorne exercises should the dizziness return. I do not see any fluid in either ear. Will get audiogram in office today for baseline. I will see her back as needed. 207884 LEE PAZ [facility] [place] [address] [address] [place] [address] 04/16/2022 13:51:14 04/16/2022 13:56:20 Abnormal auditory perception 39190332 H93.299 Health Concerns Section Related Observation LastModified by Organization Detai ls LastModified Time None Recorded Concern Status LastModified by Organization Details LastModified Time None Recorded Advance Directives Directive None Recorded Payers Insurance Date Sequence Insurance Name Policy Number Policy Carson Covered Member ID Carson Member ID Guarantor Name 05/01/2022 1 [employer] (MEDICARE REPLACEMENT/ ADVANTAGE - HMO) Jayda Iraheta [id number] Jayda Iraheta 04/16/2022 1 [place] Jayda Iraheta [id number] Jayda Iraheta 04/24/2022 1 [employer] Jayda Iraheta [id number] Jayda Iraheta Notes Date Note Type Note Provider Name and Address Organization Details Recorded Time 04/16/2022 text/html ROS as noted in the HPI 72yo female in the office today to discuss dizziness. Patient was [...] infection. Key Rubio MD [address], [place], [address], [facility] & [place] 04/28/2022 11:48:49 04/16/2022 text/html ROS as noted in the HPI Ms. Iraheta was seen today for an audiologic evaluation due to concerns about hearing decline per Dr. Key Rubio MD. Ms. Iraheta denies any significant communication disruptions. She also denies tinnitus, dizziness, drainage, aural fullness/pressure, and excessive noise exposure. Otoscopic inspection was unremarkable bilaterally. LEE PAZ [address], [place], [address], [facility] & [place] 04/16/2022 13:58:26 OBGyn Episode No OBEpisode recorded.
--- OUTSIDE RECORDS SUMMARY | 2024-09-23 08:08 | XMS_ITS | Clinical Summary ---
Author Organization [employer] ([place], [place], [place], [place]) Address [address] [place] [address] Care Team Providers Care Roll Cutter Name Role Phone Becky Clark Primary Care Provider [phone] Allergies Active Allergy Reactions Criticality Noted Date [...] Description 11/18/2024 9:30 AM EDT Office Visit [facility] - [place] [address] [place] [address] Jacob Justin MD [address] [place] [address] Health Maintenance Due Date Last [...] Insurance MEDICARE PART A B Care Teams Roll Cutter Relationship Specialty Start Date End Date Becky Clark [address] [facility] [address] [address] PCP - General 01/19/23
--- OUTSIDE RECORDS SUMMARY | 2024-09-23 08:08 | XMS_ITS | Clinical Summary ---
Author Organization [facility] ystem Address [address] [place] [address] Care Team Providers Care Lead Sprinkler Name Role Phone Unavailable Primary Care Provider [...] if there is some new clinical indication. Gasoline Pump Installer- MICHEL SUGGS Reading Radiologist- MICHEL SUGGS Releasing [...] exam will be mailed to the patient. Gasoline Pump Installer- EMILIA Gill Radiologist- MELE MARQUIS Releasing Radiologist- MELE MARQUIS Released Date Time- 07/01/13 1029 Norma [facility] MAMMOGRAPHY ORDERABLES Final Result from Last 3 Months or Most Recently Relevant to Health Maintenance
[2024-09-23 09:09] LABS: Hematocrit 37.5 % (37.0-47.0); Hemoglobin 12.2 g/dL (12.2-16.2); Immature Granulocytes % 0.2 %; Mean Corpuscular HGB Conc 32.5 g/dL (31.8-35.4); Mean Corpuscular Hemoglobin 32.7 pg (27.0-31.2); Mean Corpuscular Volume 100.5 fl (81-99); Nucleated Red Blood Cells % 0 %; Platelet Count 329 K/mm3 (142-424); Red Blood Count 3.73 M/mm3 (4.20-5.40); Red Cell Distribution Width-SD 49.1 fL; White Blood Count 8.2 K/mm3 (4.8-10.8)
== END 2024-09-23 23:59 | disposition home or self-care (01) ==
LOC: LAB 08:06
PROVIDERS: PCP Nurse Practitioner Family; Visit Provider Nurse Practitioner Family
DX: R93.89 Abnormal findings on diagnostic imaging of other specified body structures (principal)
CPT/HCPCS: 36415; 85025

== ENCOUNTER 2024-11-18 09:04 | Outpatient (CLI) | payer MEDICARE, OTHER, SELFPAY ==
--- NOTE | 2024-11-18 09:09 | XR_ITS ---
FINAL REPORT CLINICAL HISTORY: Acute injury PT STATED FELT POP YESTERDAY WHEN CLEANING A WINDOW COMPARISON: 01/23/2021 FINDINGS: No acute pulmonary density is evident. There is no evidence of effusion or other pleural disease. There is a moderate hiatal hernia. The mediastinum otherwise has a normal appearance. The cardiac silhouette is unremarkable. IMPRESSION: No acute findings. Reviewed, Interpreted and Dictated by Nay Min MD Transcribed by Kathryn Lopez Authenticated and [facility]
--- OUTSIDE RECORDS SUMMARY | 2024-11-18 09:10 | XMS_ITS | Encounter Summary ---
Author Organization [employer] ([place], [place], [place], [place]) Address [address] [place] [address] Care Team Providers Care Real Estate Attorney Name Role Phone Becky Clark Primary Care Provider Reason for Visit * Reason Onset Date Comments Appointment 11/17/2024 Encounter Details Date Type Department Care Team (Late st Contact Info) Description 11/17/2024 Telephone [facility] [address] [facility] [address] [place] [address] Jacob Justin MD [address] [facility] [address] [place] [address] Appointment Social History Tobacco Use Types Packs/Day Years Used Date Smoking Tobacco: Never Smokeless Tobacco: Never Alcohol Use Standard Drinks/Week Comments Yes 0 (1 standard drink = 0.6 oz pur e alcohol) Occasionally Family and Community Support Answer Owen e Recorded Help with Day to Day Activities Not on file 03/13/2023 Feeling Lonely or Isolated Not on file 03/13 Educational Attainment Answer Date Bryan rded Speak language other than Lebanese at home Not on file 03/13/2023 Want [...] on file Sexual Orientation Not on file documented as of this encounter Miscellaneous Notes * Telephone Encounter - Arielle Harris - 11/17/2024 9:57 AM EDT Attempted to call pt to confirm appt on 11/18/2024 with , Pt was UR/LVM for pt to confirm appt documented in this encounter Plan of Treatment Not on file documented as of this encounter Visit Diagnoses Not on filedocumented in this encounter Care Teams Real Estate Attorney Relationship Specialty Start Date End Date Becky Clark [address] [id number] PCP - General 01/19/23 documented as of this encounter
--- OUTSIDE RECORDS SUMMARY | 2024-11-18 09:10 | XMS_ITS | Clinical Summary ---
Author Organization [facility] ystem Address [address] [place] [address] Care Team Providers Care Academic Specialist Name Role Phone Unavailable Primary Care Provider [...] DXA SCAN 07/01/2015 06/30/2013 MAMMOGRAM 07/01/2015 06/30/2013 INFLUENZA VACCINE 09/30/2024 COVID-19 Vaccine ( season) 2024 COLONOSCOPY 07/21/2026 07/21/2016 COLORECTAL CANCER SCREENING 07/21/2026 [...] if there is some new clinical indication. District Leader- MICHEL SUGGS Reading Radiologist- MICHEL SUGGS Releasing [...] exam will be mailed to the patient. District Leader- EMILIA Gill Radiologist- MELE MARQUIS Releasing Radiologist- MELE MARQUIS Released Date Time- 07/01/13 1029 Norma OG [facility] [place] MAMMOGRAPHY ORDERABLES Final Result from Last 3 Months or Most Recently Relevant to Health Maintenance
--- OUTSIDE RECORDS SUMMARY | 2024-11-18 09:10 | XMS_ITS | Clinical Summary ---
Author Organization [employer] ([place], [place], [place], [place]) Address [address] [place] [address] Care Team Providers Care Area Development Consultant Name Role Phone Becky Clark Primary Care Provider [phone] Allergies Active Allergy Reactions Criticality Noted Date Comments Ciprofloxacin 11/17/2022 Medications atorvastatin (LIPITOR) 10 MG tablet Take 1 tablet (10 mg total) by mouth daily. Active amLODIPine (NORVASC) 10 MG tablet Take 10 mg by mouth daily. Active Active Problems Problem Noted Date Diagnosed Date Iron deficiency anemia, unspecified 11/18/2022 Intestinal malabsorption, unspecified type 11/18 Encounters Date Type Department Care Team Description 11/17/2024 Telephone [facility] - [place] [address] [facility] [address] [place] [address] Jacob Justin MD Appointment from Last 3 Months Social History Tobacco [...] Date Bryan rded Speak language other than Kenyan at home Not on file 03/13/2023 Want [...] 05/23/2024 8:34 AM EDT Plan of Treatment Health Maintenance Due Date Last Done Comments Medicare Initial AWV G0438 CT Colonography 1952 Colonoscopy 1952 Colorectal Cancer Screening 1952 DXA SCAN 1952 FOBT/FIT 1952 Fit-DNA (Cologuard) 1952 Sigmoidoscopy 1952 Depression Screening (12+) 1964 Hepatitis C Screening 1970 DTAP/TDAP/TD VACCINES (2 - T d or Tdap) 10/10/2012 10/10/2002 Breast Cancer Screening 07/01/2015 06/30/2013 Falls Risk Screening 03/02/2024 COVID-19 VACCINE ( season) 2024, 05/16/2020 Influenza Vaccine (#1) 2024 12/12/2019 Tobacco Cessation Counseling and Screening (12+) 05/23/2025 05/23/2024 Respiratory Syncytial Virus (RSV) Adult or (1 - 1-dose 75+ series) 2027 Shingles Vaccine (Zoster) Completed 09/09/2017, Pneumococcal 50+ years Completed , 11/29/2018, 11/11/2017 [place] [phone] MEDICARE PART A B Care Teams Area Development Consultant Relationship Specialty Start Date End Date Becky Clark [address] [address] PCP - General 01/19/23
--- OUTSIDE RECORDS SUMMARY | 2024-11-18 09:10 | XMS_ITS | Referral Summary ---
Author Organization [employer] ([place], [place], [place], [place]) Address [address] [place] [address] Care Team Providers Care Boarding Specialist Name Role Phone Becky Clark Primary Care Provider [phone] Encounters Date Type Department Care Team Description 11/17/2024 Telephone [facility] [facility] - [place] [address] [place] [address] Jacob Justin MD Appointment from Last 3 Months Allergies Active Allergy [...] Date Bryan rded Speak language other than Solomon Islander at home Not on file 03/13/2023 Want [...] 05/23/2024 8:34 AM EDT Plan of Treatment Not on file Insurance MEDICARE PART A B [facility] Care Teams Boarding Specialist Relationship Specialty Start Date End Date Becky Clark [address] [address] PCP - General 01/19/23
--- NOTE | 2024-11-18 09:18 | XR_ITS ---
FINAL REPORT CLINICAL HISTORY: pain in ribs, bilateral COMPARISON: Chest x-ray 01/23/2021 FINDINGS: BILATERAL RIBS WITH CHEST Chest: The heart is normal in size. The mediastinum is normal. The lungs are clear. There is no pneumothorax. Ribs: 3 views demonstrate no acute displaced fracture. The visualized bony structures are well aligned. IMPRESSION: No acute process. No obvious rib fracture. Reviewed, Interpreted and Dictated by Nay Min MD Transcribed by Kathryn Lopez Authenticated and . [facility]
--- NOTE | 2024-11-18 09:18 | XR_ITS ---
FINAL REPORT CLINICAL HISTORY: pop sensation, pain AFTER CLEANING A WINDOW COMPARISON: None FINDINGS: Two views of the sternum were obtained. There is no fracture identified. The visualized lungs are clear. IMPRESSION: No acute process. Reviewed, Interpreted and Dictated by Nay Min MD Transcribed by Kathryn Lopez Authenticated and . [facility]
== END 2024-11-18 23:59 | disposition home or self-care (01) ==
LOC: RAD 09:07
PROVIDERS: PCP Nurse Practitioner Family; Visit Provider Nurse Practitioner Family
DX: R07.81 Pleurodynia (principal)
CPT/HCPCS: 71046; 71111; 71120

== ENCOUNTER 2024-11-28 10:06 | Outpatient (CLI) | payer MEDICARE, OTHER, SELFPAY ==
--- NOTE | 2024-11-28 10:10 | XR_ITS ---
FINAL REPORT CLINICAL HISTORY: acute midback pain with tenderness COMPARISON: None FINDINGS: Two views of the thoracic spine were obtained. There is no malalignment. There is a 70% compression deformity of the T12 vertebra. There are no significant degenerative changes. There are postoperative changes from prior kyphoplasty. IMPRESSION: Compression deformity T12 vertebra. Reviewed, Interpreted and Dictated by Ganesh Welsh MD Transcribed by Laurie Moreno Authenticated and [facility]
--- OUTSIDE RECORDS SUMMARY | 2024-11-28 10:12 | XMS_ITS | Referral Summary ---
Author Organization [employer] ([place], [place], [place], [place]) Address [address] [place] [address] Care Team Providers Care Electronic Industrial Controls Mechanic Name Role Phone Becky Clark Primary Care Provider [phone] Encounters Date Type Department Care Team Description 11/17/2024 Telephone [place] [facility] - [place] [address] [place] [address] Jacob Justin MD Appointment from [...] Date Bryan rded Speak language other than Polish at home Not on file 03/13/2023 Want [...] on file Insurance MEDICARE PART A B [facility] Care Teams Electronic Industrial Controls Mechanic Relationship Specialty Start Date End Date eBcky Clark [address] [address] PCP - General 01/19/23
--- OUTSIDE RECORDS SUMMARY | 2024-11-28 10:12 | XMS_ITS | Encounter Summary ---
Author Organization [employer] ([place], [place], [place], [place]) Address [address] [place] [address] Care Team Providers Care Linen Room Attendant Name Role Phone Becyk Clark Primary Care Provider [phone] Reason for Visit * Reason Onset Date Comments Appointment 11/17/2024 Encounter Details Date Type Department Care Team (Late st Contact Info) Description 11/17/2024 Telephone [facility] [facility] - [facility] [address] [facility] [address] [place] [address] Jacob Justin MD [address] [facility] [address] [place] [address] Appointment Social History Tobacco Use [...] Date Bryan rded Speak language other than Nauruan at home Not on file 03/13/2023 Want [...] on filedocumented in this encounter Care Teams Linen Room Attendant Relationship Specialty Start Date End Date Becky Clark [address] [phone] PCP - General 01/19/23 documented as of this encounter
--- OUTSIDE RECORDS SUMMARY | 2024-11-28 10:12 | XMS_ITS | Data Portability ---
Author Organization [facility] ADMIN Address [address] [place] [address] Assessment No assessment recorded. Plan of Treatment [...] By Organization Details Last Modified Time 04/16/2022 [id number] 1-Discussed findings with Ms. Iraheta and Dr. [...] Organization Details Recorded Time Abnormal auditory perception 54946496 Active 023 TANISHA HUI, AUD [address] , [place], [address] , [facility] & [place] 13:57:52 Problem Notes None recorded. Procedures Surgical History Date Name Laterality Status Provider Name and Address Organization Details Recorded Time Hysterectomy completed Brenda Mer [facility] & [place] 04/16/2022 13:24:39 procedure on back completed Brenda Mer [place] [facility] & [place] 04/16/2022 13:24:51 Imaging Results None recorded. Procedure Notes None recorded. Medical Equipment None Reported. Allergies Allergen ID Allergen Name Allergen Category Reaction Reaction Severity Criticality Documentation Date Start Date Code Code System Note Provider Name and Address Organization Details Recorded Time 44259 Cipro medicatio n rash Not available [facility] 04/16/2022 24661 3 RxNorm Brenda Del Angel [facility] & [place] 3 13:19:52 Medications Name Sig Start Date [...] Updated DateTime 3 165.1 cm 32.9 kg/m2 86307.2 9 g 99 [degF] 83 /min 114/65 mm[Hg] Brenda PICKENS [facility] & [place] 3 13:19:28 Social History None recorded. Functional Status None recorded. Mental Status None recorded. Family History Nothing Reported. 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 Condition Response Allergies/Hayfever N Heart Problems N None N Heart Conditions N Emphysema N Migraines N Thyroid Problems N Developmental Delay N Depression N Glaucoma N Anemia N Immune System Disorder N Anesthesia Complications N Heart Attack ([place]) N Anxiety Disorder N Diabetes N Bleeding [...] Diagnosis SNOMED-CT Code Diagnosis ICD10 Code Diagnosis IMO Codes Diagnosis Note [id number] Key Rubio MD [facility] [place] [address] [address] [place] [address] 04/16/2022 13:13:31 04/16/2022 13:58:27 Dizziness and giddiness 897742120 R42 [place] Hallpike negative in the office today. I suspect PT aligned her crystals. Encouraged her to start Cawthorne exercises should the dizziness return. I do not see any fluid in either ear. Will get audiogram in office today for baseline. I will see her back as needed. [id number] LEE PAZ [facility] [place] [address] [address] [place] [address] 04/16/2022 13:51:14 04/16/2022 13:56:20 Abnormal auditory perception 15692542 H93.299 Health Concerns Section Related Observation LastModified by Organization Detai ls LastModified Time None Recorded Concern Status LastModified by Organization Details LastModified Time None Recorded Advance Directives Directive None Recorded Payers Insurance Date Sequence Insurance Name Policy Number Policy Carson Covered Member ID Carson Member ID Guarantor Name 05/01/2022 1 [employer] (MEDICARE REPLACEMENT/ ADVANTAGE - HMO) Jayda Iraheta [id number] Jayda Iraheta 04/16/2022 1 [place]ARE[place] Jayda Iraheta [id number] Jayda Iraheta 04/24/2022 1 [employer] Jayda Iraheta [id number] Jayda Iraheta Notes Date Note Type Note [...] infection. Key Rubio MD [address], [place], [address], [facility] & [place] 04/28/2022 11:48:49 04/16/2022 text/html ROS as noted in the HPI Ms. Iraheta was seen today for an audiologic evaluation due to concerns about hearing decline per Dr. Key Rubio MD. Ms. Iraheta denies any significant communication disruptions. She also denies tinnitus, dizziness, drainage, aural fullness/pressure, and excessive noise exposure. Otoscopic inspection was unremarkable bilaterally. LEE PAZ [address], [place], [address], [facility] & [place] 04/16/2022 13:58:26 OBGyn Episode No OBEpisode recorded.
--- OUTSIDE RECORDS SUMMARY | 2024-11-28 10:13 | XMS_ITS | Clinical Summary ---
Author Organization [employer] ([place], [place], [place], [place]) Address [address] [place] [address] Care Team Providers Care Financial Underwriter Name Role Phone Becky Clark Primary Care Provider [phone] Allergies Active Allergy Reactions Criticality Noted Date [...] Type Department Care Team Description 11/17/2024 Telephone [place] [facility] - [place] [address] [facility] [address] [place] [address] Jacob Justin MD Appointment from [...] Date Bryan rded Speak language other than Citizen Of [place] at home Not on file 03/13/2023 Want [...] Completed , 11/29/2018, 11/11/2017 [place] [id number] MEDICARE PART A B Care Teams Financial Underwriter Relationship Specialty Start Date End Date Becky Clark [address] [address] PCP - General 01/19/23
--- OUTSIDE RECORDS SUMMARY | 2024-11-28 10:13 | XMS_ITS | Clinical Summary ---
Author Organization [facility] ystem Address [address] [place] [address] Care Team Providers Care Outside Production Inspector Name Role Phone Unavailable Primary Care Provider [...] if there is some new clinical indication. Home Theater Installer- MICHEL SUGGS Reading Radiologist- MICHEL SUGGS [...] exam will be mailed to the patient. Home Theater Installer- EMILIA Gill Radiologist- MELE MARQUIS Releasing Radiologist- MELE MARQUIS Released Date Time- 07/01/13 1029 Norma OG [facility] [place] [place] MAMMOGRAPHY ORDERABLES Final Result from Last 3 Months or Most Recently Relevant to Health Maintenance
== END 2024-11-28 23:59 | disposition home or self-care (01) ==
LOC: RAD 10:07
PROVIDERS: PCP Nurse Practitioner Family; Visit Provider Nurse Practitioner Family
DX: S22.080A Wedge compression fracture of T11-T12 vertebra, initial encounter for closed fracture (principal); M79.18 Myalgia, other site
CPT/HCPCS: 72072

== ENCOUNTER 2024-12-01 09:39 | Outpatient (CLI) | payer MEDICARE, OTHER, SELFPAY ==
--- OUTSIDE RECORDS SUMMARY | 2024-12-01 09:43 | XMS_ITS | Encounter Summary ---
Author Organization [employer] ([place], [place], [place], [place]) Address [address] [place] [address] Care Team Providers Care Manager Contract Name Role Phone Becky Clark Primary Care Provider [phone] Reason for Visit * Reason Onset Date Comments Appointment 11/17/2024 Encounter Details Date Type Department Care Team (Late st Contact Info) Description 11/17/2024 Telephone [place] [facility] - [facility] [address] [facility] [address] [place] [address] Jacob Justin MD [address] [facility] [address] [place] [address] Appointment Social History Tobacco Use [...] Date Bryan rded Speak language other than Ugandan at home Not on file 03/13/2023 Want [...] on filedocumented in this encounter Care Teams Manager Contract Relationship Specialty Start Date End Date Becky Clark [address] [phone] PCP - General 01/19/23 documented as of this encounter
--- OUTSIDE RECORDS SUMMARY | 2024-12-01 09:44 | XMS_ITS | Clinical Summary ---
Author Organization [employer] ([place], [place], [place], [place]) Address [address] [place] [address] Care Team Providers Care Processing Supervisor Name Role Phone Becky Clark Primary Care Provider [phone] Allergies Active Allergy Reactions Criticality Noted Date [...] Type Department Care Team Description 11/17/2024 Telephone [facility] - [place] [address] [address] [facility] [address] [place] [address] Jacob Justin MD Appointment from [...] Date Bryan rded Speak language other than Mosotho at home Not on file 03/13/2023 Want [...] Completed , 11/29/2018, 11/11/2017 [place] [phone] MEDICARE PART A B Care Teams Processing Supervisor Relationship Specialty Start Date End Date Becky Clark [address] [address] PCP - General 01/19/23
--- OUTSIDE RECORDS SUMMARY | 2024-12-01 09:44 | XMS_ITS | Referral Summary ---
Author Organization [employer] ([place], [place], [place], [place]) Address [address] [place] [address] Care Team Providers Care Boot And Shoe Repairman Name Role Phone Becky Clark Primary Care Provider [phone] Encounters Date Type Department Care Team Description 11/17/2024 Telephone [facility] [facility] - [place] [address] [place] [address] Jacob Justin MD Appointment from [...] Date Bryan rded Speak language other than Ukrainian at home Not on file 03/13/2023 Want [...] on file Insurance MEDICARE PART A B [facility] Care Teams Boot And Shoe Repairman Relationship Specialty Start Date End Date Becky Clark [address] [address] PCP - General 01/19/23
--- OUTSIDE RECORDS SUMMARY | 2024-12-01 09:44 | XMS_ITS | Data Portability ---
Author Organization [facility] ADMIN Address [address] [place] [phone] Assessment No assessment recorded. Plan of Treatment [...] By Organization Details Last Modified Time 04/16/2022 [id number] 1-Discussed findings with Ms. Iraheta and Dr. Key Rubio MD. 2-F/u with Dr. Rubio this date. 3-F/u hearing testing as directed. [email or web address] Not available 04/16/2022 13:58:14 Reason for Referral [...] Organization Details Recorded Time Abnormal auditory perception 55898724 Active 023 TANISHA HUI, AUD [address] , [place], [address] , [facility] & [place] 13:57:52 Problem Notes None recorded. Procedures Surgical History Date Name Laterality Status Provider Name and Address Organization Details Recorded Time Hysterectomy completed Brenda Mer [facility] & [place] 04/16/2022 13:24:39 procedure on back completed Brenda Mer [place] [facility] & [place] 04/16/2022 13:24:51 Imaging Results None recorded. Procedure Notes None recorded. Medical Equipment None Reported. Allergies Allergen ID Allergen Name Allergen Category Reaction Reaction Severity Criticality Documentation Date Start Date Code Code System Note Provider Name and Address Organization Details Recorded Time 16879 Cipro medicatio n rash Not available [facility] 04/16/2022 70475 3 RxNorm Brenda Del Angel [facility] & [place] 3 13:19:52 Medications Name Sig Start Date [...] Updated DateTime 3 165.1 cm 32.9 kg/m2 18450.2 9 g 99 [degF] 83 /min 114/65 mm[Hg] Brenda PICKENS [facility] & [place] 3 13:19:28 Social History None recorded. Functional Status None recorded. Mental Status None recorded. Family History Nothing Reported. 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 Condition Response Allergies/Hayfever N Heart Problems N None N Heart Conditions N Emphysema N Migraines N Thyroid Problems N Depression N Developmental Delay N Glaucoma N Anemia N Immune System Disorder N Anesthesia Complications N Heart Attack ([place]) N Diabetes N Anxiety Disorder N Bleeding Disorder N Hearing Loss N Arthritis N Tuberculosis N Hyperlipidemia N Acid Reflux (GERD) Y Cancer N Stroke N Asthma N Sleep Disorder N GERD/Reflux N Heart Disease N Headaches N Fibromyalgia N Hypertension Y Speech Delay N Kidney Disease N Gynecological HistoryNo gynecological history recorded. Obstetrics History GPAL:G 0 P 0 0 0 0 Past Encounters Encounter ID Performer Location Encounter Start Date Encounter Closed Date Diagnosis/Indication Diagnosis SNOMED-CT Code Diagnosis ICD10 Code Diagnosis IMO Codes Diagnosis Note [id number] Key Rubio MD [facility] [place] [address] [address] [place] [address] 04/16/2022 13:13:31 04/16/2022 13:58:27 Dizziness and giddiness [id number] R42 [place] Hallpike negative in the office today. I suspect PT aligned her crystals. Encouraged her to start Cawthorne exercises should the dizziness return. I do not see any fluid in either ear. Will get audiogram in office today for baseline. I will see her back as needed. [id number] LEE PAZ [facility] [place] [address] [address] [place] [address] 04/16/2022 13:51:14 04/16/2022 13:56:20 Abnormal auditory perception 12554139 H93.299 Health Concerns Section Related Observation LastModified by Organization Detai ls LastModified Time None Recorded Concern Status LastModified by Organization Details LastModified Time None Recorded Advance Directives Directive None Recorded Payers Insurance Date Sequence Insurance Name Policy Number Policy Carson Covered Member ID Carson Member ID Guarantor Name 05/01/2022 1 [employer] (MEDICARE REPLACEMENT/ ADVANTAGE - HMO) Jayda Iraheta [id number] Jayda Iraheta 04/16/2022 1 [place] Jayda Iraheta [id number] Jayda Iraheta 04/24/2022 1 [employer] Jayda Iraheta [id number] Jayda Iraheta Notes Date Note Type Note [...] infection. Key Rubio MD [address], [place], [address], [facility] & [place] 04/28/2022 11:48:49 04/16/2022 text/html ROS as noted in the HPI Ms. Iraheta was seen today for an audiologic evaluation due to concerns about hearing decline per Dr. Key Rubio MD. Ms. Iraheta denies any significant communication disruptions. She also denies tinnitus, dizziness, drainage, aural fullness/pressure, and excessive noise exposure. Otoscopic inspection was unremarkable bilaterally. LEE PAZ [address], [place], [address], [facility] & [place] 04/16/2022 13:58:26 OBGyn Episode No OBEpisode recorded.
--- OUTSIDE RECORDS SUMMARY | 2024-12-01 09:44 | XMS_ITS | Clinical Summary ---
Author Organization [facility] ystem Address [address] [place] [address] Care Team Providers Care Planning Management It Specialist Name Role Phone Unavailable Primary Care [...] if there is some new clinical indication. Behavior Management Specialist- MICHEL SUGGS Reading Radiologist- MICHEL SUGGS Releasing [...] exam will be mailed to the patient. Behavior Management Specialist- EMILIA Gill Radiologist- MELE MARQUIS Releasing Radiologist- MELE MARQUIS Released Date Time- 07/01/13 1029 Norma OG [facility] MAMMOGRAPHY ORDERABLES Final Result from Last 3 Months or Most Recently Relevant to Health Maintenance
--- NOTE | 2024-12-01 10:02 | CT_ITS ---
FINAL REPORT TECHNIQUE: Axial images were obtained through the chest without contrast. Multiplanar reconstructions in the sagittal and coronal planes were subsequently performed. This study was performed with techniques to keep radiation doses as low as reasonably achievable (ALARA). Individualized dose reduction techniques using automated exposure control or adjustment of mA and/or kV according to the patient's size were employed. CLINICAL HISTORY: Paraesophageal hernia COMPARISON: None FINDINGS: CT CHEST: The lungs are clear. No mass or adenopathy is identified. There are small calcified right hilar and mediastinal nodes present. The stomach is completely intrathoracic. The heart size is normal. There is no pericardial or pleural effusion. Limited images of the upper abdomen are unremarkable. No suspicious infiltrate or nodule identified. IMPRESSION: Completely intrathoracic positioning of the stomach. Reviewed, Interpreted and Dictated by Ganesh Welsh MD Transcribed by Funmilayo Cabrera Authenticated and [facility]
--- NOTE | 2024-12-01 10:15 | CT_ITS ---
FINAL REPORT TECHNIQUE: Axial CT images were performed from the lung bases through the iliac crests. Coronal and sagittal reformats were submitted. This study was performed with techniques to keep radiation doses as low as reasonably achievable (ALARA). Individualized dose reduction techniques using automated exposure control or adjustment of mA and/or kV according to the patient's size were employed. CLINICAL HISTORY: giant paraesophageal hernia oral contrast only COMPARISON: None FINDINGS: CT ABDOMEN: The stomach is completely intrathoracic. The liver parenchyma is homogeneous. The spleen, pancreas, and adrenals are unremarkable. There is no evidence of nephrolithiasis or hydronephrosis. There is no mass or adenopathy. There is evidence of a prior kyphoplasty, with 60% or more loss of vertebral body height. IMPRESSION: Stomach is completely intrathoracic. No acute abnormality of the abdomen is identified. Reviewed, Interpreted and Dictated by Ganesh Welsh MD Transcribed by Funmilayo Cabrera Authenticated and . [facility]
[2024-12-01 10:26] LABS: Blood Urea Nitrogen 15 mg/dl (7-17); Creatinine,Serum 0.80 mg/dl (0.52-1.04); Estimated Glomerular Filt Rate 71 ml/min (>60); GFR (African American) 85 ML/MIN (>60)
== END 2024-12-01 23:59 | disposition home or self-care (01) ==
LOC: RAD 09:40
PROVIDERS: PCP Nurse Practitioner Family; Visit Provider Nurse Practitioner Family
DX: K44.9 Diaphragmatic hernia without obstruction or gangrene (principal)
CPT/HCPCS: 36415; 71250; 74150; 82565; 84520